=== PATIENT | male | born 1945 | race Caucasian/White ===

== ENCOUNTER → 2017-01-18 | Outpatient (CLI) | payer OTHER ==
[2017-01-18 13:35] LABS: ALBUMIN 3.7 GM/DL (3.2-5.2); ALBUMIN/GLOBULIN RATIO 1.32 (1.00-1.93); ALKALINE PHOSPHATASE 99 U/L (45-117); ALT/SGPT 22 U/L (12-78); ANION GAP 4 MEQ/L (8-16); AST/SGOT 23 U/L (15-37); BILIRUBIN,TOTAL 0.6 MG/DL (0.2-1.0); BLOOD UREA NITROGEN 13 MG/DL (7-18); CALCIUM LEVEL 8.8 MG/DL (8.8-10.2); CARBON DIOXIDE LEVEL 31 MEQ/L (21-32); CHLORIDE LEVEL 101 MEQ/L (98-107); CREATININE FOR GFR 0.86 MG/DL (0.70-1.30); GLOMERULAR FILTRATION RATE > 60.0 (>42); GLUCOSE, FASTING 91 MG/DL (83-110); POTASSIUM SERUM 4.2 MEQ/L (3.5-5.1); SODIUM LEVEL 136 MEQ/L (136-145); TOTAL PROTEIN 6.5 GM/DL (6.4-8.2)
== END ==
LOC: M LAB 12:02
PROVIDERS: ATTEND Physician Assistant
DX: E78.00 Pure hypercholesterolemia, unspecified (principal); I25.10 Atherosclerotic heart disease of native coronary artery without angina pectoris

== ENCOUNTER → 2017-03-19 | Outpatient (CLI) | payer OTHER ==
[2017-03-19 10:35] LABS: MEAN CORPUSCULAR HEMOGLOBIN 31.6 pg (27.0-33.0); MEAN CORPUSCULAR HGB CONC 34.4 g/dl (32.0-36.5); MEAN CORPUSCULAR VOLUME 91.8 fl (80.0-96.0); RED CELL DISTRIBUTION WIDTH 13.6 % (11.5-14.5); WHITE BLOOD COUNT 4.8 K/mm3 (4.0-10.0)
== END ==
LOC: M LAB 09:56
PROVIDERS: ATTEND Physician Assistant
DX: I25.10 Atherosclerotic heart disease of native coronary artery without angina pectoris (principal)

== ENCOUNTER 2017-06-10 11:09 | Emergency (ER) | payer OTHER ==
[~2017-06-10] VITALS: Ht 172.7 cm; Wt 67.3 kg
[2017-06-10] MEDS ORDERED: LISI-538 PO (11:20)
[2017-06-10] MEDS ORDERED: BAYE1TAB PO (11:20)
[2017-06-10] MEDS ORDERED: SIMV40TA2 PO (11:20)
[2017-06-10] MEDS ORDERED: NS 1,000 ML IV ONE (12:15)
[2017-06-10] MEDS ORDERED: ONDANSETRON 4MG/2ML VIAL (J2405) IV ONE (12:15)
[2017-06-10] MEDS ORDERED: GASTROGRAFIN SOLUTION 30ML (Q9963) As Ordered ONE (12:20)
[2017-06-10] MEDS ORDERED: GASTROGRAFIN SOLUTION 30ML PO ONE (12:30)
[2017-06-10 12:39] LABS: BASO % 0.1 % (0.0-1.0); IMMATURE GRANULOCYTE % 0.4 % (0-0); LYMPH # 0.3 10^3/uL (1.5-4.5); MEAN CORPUSCULAR HEMOGLOBIN 30.1 pg (27.0-33.0); MEAN CORPUSCULAR VOLUME 91.3 fl (80.0-96.0); MONO # 0.6 10^3/uL (0.0-0.8); MONO % 4.9 % (0.0-5.0); NEUTROPHILS % 92.3 % (36.0-66.0); PLATELET COUNT, AUTOMATED 146 10^3/uL (150-450); RED CELL DISTRIBUTION WIDTH 13.3 % (11.5-14.5)
[2017-06-10 12:58] LABS: ALBUMIN/GLOBULIN RATIO 1.48 (1.00-1.93); BILIRUBIN,TOTAL 0.6 MG/DL (0.2-1.0); CALCIUM LEVEL 8.5 MG/DL (8.8-10.2); CREATININE FOR GFR 1.28 MG/DL (0.70-1.30); GLOMERULAR FILTRATION RATE 58.8 (>42); POTASSIUM SERUM 4.4 MEQ/L (3.5-5.1); TOTAL PROTEIN 6.7 GM/DL (6.4-8.2)
[2017-06-10] MEDS ORDERED: GASTROGRAFIN SOLUTION 30ML (Q9963) PO ONE (13:00)
[2017-06-10 13:17] LABS: LYMPH % 2.3 % (24.0-44.0); POSITIVE DIFF POS FLAG
[2017-06-10 13:18] LABS: ADD MANUAL DIFFER NO; DIFF SLIDE NUMBER 217
[2017-06-10] MEDS ORDERED: DICYCLOMINE 10 MG CAP PO ONE (13:30)
[2017-06-10] MEDS ORDERED: ISOVUE-370 76% 100ML VIAL (Q9967) As Ordered ONE (13:44)
[2017-06-10] MEDS ORDERED: TAMSULOSIN 0.4 MG CAP PO ONE (15:15)
[2017-06-10] MEDS ORDERED: KETOROLAC 30 MG/ML VIAL (J1885) IV ONE (15:15)
[2017-06-10] MEDS ORDERED: FLOM5CAP PO (15:54)
[2017-06-10] MEDS ORDERED: PERC5TAB12 PO (15:54)
[2017-06-10] MEDS ORDERED: MACR100C43 PO (15:54)
--- NOTE | 2017-06-10 16:09 | REP ---
CT abdomen pelvis with IV but without oral contrast: History: Right lower quadrant pain. CT contrast dose: 100 ml of intravenous Isovue 370. Findings: Preliminary chief nursing executive view of the abdomen shows an unremarkable bowel gas pattern. The patient is status post aortic valve replacement. Axial CT images demonstrate that the lung bases are clear. The liver and the spleen are normal in size and homogeneous in texture. No adrenal lesion is seen. Pancreas and gallbladder are unremarkable. There is a cyst at the left mid kidney posteriorly measuring 3.7 cm in greatest diameter. On the right there is moderate hydronephrosis and hydroureter ureter. This is due to a 4 mm obstructing calculus just above the right ureter O vesicle junction in the distal ureter. This is associated with perinephric fluid or perinephric edema and some tom ureteral edema. There is an obstructive nephrogram on the right. No intrarenal calculus is observed. There is a cyst in the lower pole right kidney noted as well. This measures 1.5 cm in diameter. No bladder calculus is seen. Small and large intestinal bowel loops are remarkable for left colonic diverticulosis and a minimal ileus pattern. Normal caliber aorta with vascular calcification. No abdominal wall defect is seen. Bone window settings show no bony destructive lesion. There is evidence of a right L4-5 laminectomy defect. Impression: Obstructive 4 mm right distal ureteral calculus with moderate hydronephrosis and perinephric edema/fluid. Small bilateral renal cysts. Left colonic diverticulosis. Signed by Tan Michel MD 06/11/2017 08:14 A
[2017-06-10 16:14] VITALS: BP 112/69
== END 2017-06-10 16:18 | disposition home or self-care (01) ==
LOC: M ED 11:09
DX: N20.0 Calculus of kidney (principal); N28.1 Cyst of kidney, acquired; K57.90 Diverticulosis of intestine, part unspecified, without perforation or abscess without bleeding; I10 Essential (primary) hypertension; E78.5 Hyperlipidemia, unspecified; Z95.1 Presence of aortocoronary bypass graft; F17.200 Nicotine dependence, unspecified, uncomplicated; Z79.82 Long term (current) use of aspirin; Z79.899 Other long term (current) drug therapy
CPT/HCPCS: 36415; 74177; 80053; 83690; 85025; 96374; 96375; 99284; J1885; J2405; Q9963; Q9967

== ENCOUNTER 2017-06-13 16:20 | Emergency (ER) | payer OTHER ==
[~2017-06-13] VITALS: Ht 172.7 cm; Wt 67.3 kg
[~2017-06-13 16:20] MED LIST: BAYE1TAB PO; FLOM5CAP PO; LISI-538 PO; MACR100C43 PO; PERC5TAB12 PO; SIMV40TA2 PO
[2017-06-13] MEDS ORDERED: MORPHINE 2 MG/ML 1ML SYRINGE IV ONE (17:30)
[2017-06-13] MEDS ORDERED: NS 500 ML IV ONE (17:30)
[2017-06-13] MEDS ORDERED: ONDANSETRON 4MG/2ML VIAL (J2405) IV ONE (17:45)
[2017-06-13 18:24] LABS: BASO % 0.1 % (0.0-1.0); IMMATURE GRANULOCYTE % 0.2 % (0-0); LYMPH # 0.3 10^3/uL (1.5-4.5); LYMPH % 3.7 % (24.0-44.0); MEAN CORPUSCULAR HEMOGLOBIN 30.6 pg (27.0-33.0); MEAN CORPUSCULAR HGB CONC 33.5 g/dl (32.0-36.5); MEAN CORPUSCULAR VOLUME 91.3 fl (80.0-96.0); MONO # 0.7 10^3/uL (0.0-0.8); MONO % 7.7 % (0.0-5.0); NEUTROPHILS # 7.8 10^3/uL (1.8-7.7); NEUTROPHILS % 88.3 % (36.0-66.0); PLATELET COUNT, AUTOMATED 111 10^3/uL (150-450); RED CELL DISTRIBUTION WIDTH 13.3 % (11.5-14.5); WHITE BLOOD COUNT 8.9 10^3/uL (4.0-10.0)
[2017-06-13 18:45] LABS: CALCIUM LEVEL 8.3 MG/DL (8.8-10.2); CREATININE FOR GFR 1.34 MG/DL (0.70-1.30); GLOMERULAR FILTRATION RATE 55.8 (>42); POTASSIUM SERUM 4.7 MEQ/L (3.5-5.1)
--- NOTE | 2017-06-13 19:00 | REPUSA ---
CLINICAL HISTORY: Right renal stone. TECHNIQUE: Realtime sonographic images were obtained in multiple projections. COMMENTS: The right kidney measures 11.9 cm and the left kidney measures 10.6 cm. Both kidneys are free of hydronephrosis. There is no evidence of solid mass. There is right perinephric fluid. There is no roger al calculus. 2.6 cm left renal cyst is noted. IMPRESSION: . There is right perinephric fluid. There is no hydronephrosis or renal calculus. 2.6 cm left renal c yst is noted. Thank you for your kind referral of this patient.
[2017-06-13 20:47] LABS: MUCUS, URINE RFX SMALL (NEGATIVE); SPECIFIC GRAVITY UR AUTO RFX 1.013 (1.002-1.035); SQUAM EPITHELIAL CELL UR AURFX 0 /HPF (0-6)
[2017-06-13] MEDS ORDERED: NORCOTAB PO (21:22)
[2017-06-13] MEDS ORDERED: FLOM5CAP PO (21:22)
[2017-06-13 21:25] VITALS: BP 170/73
== END 2017-06-13 21:31 | disposition home or self-care (01) ==
LOC: M ED 16:20
DX: N23 Unspecified renal colic (principal); R10.9 Unspecified abdominal pain; N28.1 Cyst of kidney, acquired; I10 Essential (primary) hypertension; Z87.442 Personal history of urinary calculi; Z95.1 Presence of aortocoronary bypass graft; F17.200 Nicotine dependence, unspecified, uncomplicated; Z79.82 Long term (current) use of aspirin; Z79.899 Other long term (current) drug therapy
CPT/HCPCS: 76775; 80048; 81001; 85025; 86140; 96361; 96374; 96375; 99284; J2405

== ENCOUNTER → 2017-09-08 | Outpatient (REF) | payer OTHER ==
[2017-09-08 13:38] LABS: ALBUMIN 3.6 GM/DL (3.2-5.2); ANION GAP 4 MEQ/L (8-16); BLOOD UREA NITROGEN 15 MG/DL (7-18); CALCIUM LEVEL 8.4 MG/DL (8.8-10.2); CARBON DIOXIDE LEVEL 29 MEQ/L (21-32); CHLORIDE LEVEL 107 MEQ/L (98-107); CREATININE FOR GFR 0.77 MG/DL (0.70-1.30); GLOMERULAR FILTRATION RATE > 60.0 (>42); GLUCOSE, FASTING 91 MG/DL (70-100); PHOSPHORUS LEVEL 2.9 MG/DL (2.5-4.9); POTASSIUM SERUM 4.7 MEQ/L (3.5-5.1); SODIUM LEVEL 140 MEQ/L (136-145)
== END ==
LOC: M LABDRAW1 10:56
DX: I10 Essential (primary) hypertension (principal)
CPT/HCPCS: 80069

== ENCOUNTER → 2018-01-28 | Outpatient (REF) | payer OTHER ==
[2018-01-28 12:44] LABS: ALBUMIN 3.8 GM/DL (3.2-5.2); ALBUMIN/GLOBULIN RATIO 1.31 (1.00-1.93); ALKALINE PHOSPHATASE 83 U/L (45-117); ALT/SGPT 19 U/L (12-78); ANION GAP 5 MEQ/L (8-16); AST/SGOT 17 U/L (7-37); BILIRUBIN,TOTAL 0.4 MG/DL (0.2-1.0); BLOOD UREA NITROGEN 19 MG/DL (7-18); CALCIUM LEVEL 8.7 MG/DL (8.8-10.2); CARBON DIOXIDE LEVEL 33 MEQ/L (21-32); CHLORIDE LEVEL 105 MEQ/L (98-107); CHOLESTEROL LEVEL 132 MG/DL (<200); CHOLESTEROL RISK RATIO 2.095 (<5); CREATININE FOR GFR 0.82 MG/DL (0.70-1.30); GLOMERULAR FILTRATION RATE > 60.0 (>42); GLUCOSE, FASTING 83 MG/DL (70-100); HDL CHOLESTEROL 63 MG/DL (>40); LDL CHOLESTEROL 48.6 MG/DL (<100); NON-HDL-C 69 MG/DL; SODIUM LEVEL 143 MEQ/L (136-145); TOTAL PROTEIN 6.7 GM/DL (6.4-8.2); TRIGLYCERIDES LEVEL 102 MG/DL (<150)
[2018-01-28 12:52] LABS: POTASSIUM SERUM 5.2 MEQ/L (3.5-5.1)
== END ==
LOC: M LABDRAW1 12:04
DX: I25.10 Atherosclerotic heart disease of native coronary artery without angina pectoris (principal); E78.00 Pure hypercholesterolemia, unspecified; I10 Essential (primary) hypertension

== ENCOUNTER → 2018-08-02 | Outpatient (CLI) | payer OTHER ==
[~2018-08-02] MED LIST changes: +FLOM0.4C39 PO; -FLOM5CAP PO; +NORCOTAB PO
[2018-08-02 12:16] LABS: BLOOD UREA NITROGEN 16 MG/DL (7-18); CALCIUM LEVEL 8.4 MG/DL (8.8-10.2); CARBON DIOXIDE LEVEL 31 MEQ/L (21-32); CHLORIDE LEVEL 104 MEQ/L (98-107); CREATININE FOR GFR 0.91 MG/DL (0.70-1.30); GLOMERULAR FILTRATION RATE > 60.0 (>42); GLUCOSE, FASTING 88 MG/DL (70-100); POTASSIUM SERUM 4.7 MEQ/L (3.5-5.1); SODIUM LEVEL 140 MEQ/L (136-145)
== END ==
LOC: M LAB 10:48
PROVIDERS: ATTEND Physician Assistant
DX: I10 Essential (primary) hypertension (principal)

== ENCOUNTER → 2019-01-10 | Outpatient (CLI) | payer OTHER ==
[~2019-01-10] MED LIST changes: +HYDR-3715 PO; -NORCOTAB PO
[2019-01-10 12:59] LABS: BASO % 0.7 % (0.0-1.0); EOS # 0.1 10^3/uL (0.0-0.50); EOS % 3.4 % (0.0-3.0); HEMATOCRIT 46.5 % (42.0-52.0); HEMOGLOBIN 14.2 g/dl (13.5-17.5); LYMPH # 0.6 10^3/uL (1.5-4.5); LYMPH % 15.7 % (24.0-44.0); MEAN CORPUSCULAR HEMOGLOBIN 27.4 pg (27.0-33.0); MEAN CORPUSCULAR HGB CONC 30.5 g/dl (32.0-36.5); MEAN CORPUSCULAR VOLUME 89.8 fl (80.0-96.0); MONO # 0.5 10^3/uL (0.0-0.8); MONO % 11.3 % (0.0-5.0); NEUTROPHILS # 2.8 10^3/uL (1.8-7.7); NEUTROPHILS % 68.7 % (36.0-66.0); PLATELET COUNT, AUTOMATED 143 10^3/uL (150-450); RED BLOOD COUNT 5.18 10^6/uL (4.30-6.10); WHITE BLOOD COUNT 4.1 10^3/uL (4.0-10.0)
[2019-01-10 13:04] LABS: ALBUMIN 3.1 GM/DL (3.2-5.2); ALT/SGPT 19 U/L (12-78); BILIRUBIN,TOTAL 0.5 MG/DL (0.2-1.0); BLOOD UREA NITROGEN 19 MG/DL (7-18); CALCIUM LEVEL 8.6 MG/DL (8.8-10.2); CARBON DIOXIDE LEVEL 34 MEQ/L (21-32); CHLORIDE LEVEL 103 MEQ/L (98-107); CHOLESTEROL LEVEL 125 MG/DL (<200); CHOLESTEROL RISK RATIO 2.016 (<5); CREATININE FOR GFR 0.93 MG/DL (0.70-1.30); GLOMERULAR FILTRATION RATE > 60.0 (>42); GLUCOSE, FASTING 81 MG/DL (70-100); HDL CHOLESTEROL 62 MG/DL (>40); LDL CHOLESTEROL 51 MG/DL (<100); NON-HDL-C 63 MG/DL; SODIUM LEVEL 140 MEQ/L (136-145); TOTAL PROTEIN 6.4 GM/DL (6.4-8.2); TRIGLYCERIDES LEVEL 60 MG/DL (<150)
== END ==
LOC: M LRY 09:38
PROVIDERS: ATTEND Physician Assistant
DX: I10 Essential (primary) hypertension (principal); E78.2 Mixed hyperlipidemia; J44.9 Chronic obstructive pulmonary disease, unspecified

== ENCOUNTER → 2019-03-10 | Outpatient (CLI) | payer OTHER ==
[2019-03-10 21:04] LABS: HEMATOCRIT 45.5 % (42.0-52.0); HEMOGLOBIN 14.3 g/dl (13.5-17.5); MEAN CORPUSCULAR HEMOGLOBIN 27.8 pg (27.0-33.0); MEAN CORPUSCULAR HGB CONC 31.4 g/dl (32.0-36.5); MEAN CORPUSCULAR VOLUME 88.3 fl (80.0-96.0); PLATELET COUNT, AUTOMATED 129 10^3/uL (150-450); RED BLOOD COUNT 5.15 10^6/uL (4.30-6.10); WHITE BLOOD COUNT 5.1 10^3/uL (4.0-10.0)
[2019-03-10 21:13] LABS: ALBUMIN 3.5 GM/DL (3.2-5.2); ALT/SGPT 21 U/L (12-78); BILIRUBIN,TOTAL 0.4 MG/DL (0.2-1.0); BLOOD UREA NITROGEN 17 MG/DL (7-18); CALCIUM LEVEL 8.3 MG/DL (8.8-10.2); CARBON DIOXIDE LEVEL 31 MEQ/L (21-32); CHLORIDE LEVEL 105 MEQ/L (98-107); CHOLESTEROL LEVEL 138 MG/DL (<200); CHOLESTEROL RISK RATIO 2.156 (<5); CREATININE FOR GFR 0.89 MG/DL (0.70-1.30); GLOMERULAR FILTRATION RATE > 60.0 (>42); GLUCOSE, FASTING 90 MG/DL (70-100); HDL CHOLESTEROL 64 MG/DL (>40); LDL CHOLESTEROL 52 MG/DL (<100); NON-HDL-C 74 MG/DL; POTASSIUM SERUM 4.6 MEQ/L (3.5-5.1); SODIUM LEVEL 141 MEQ/L (136-145); TOTAL PROTEIN 6.1 GM/DL (6.4-8.2); TRIGLYCERIDES LEVEL 110 MG/DL (<150)
== END ==
LOC: M LRY 15:33
PROVIDERS: ATTEND Physician Assistant
DX: I25.10 Atherosclerotic heart disease of native coronary artery without angina pectoris (principal); E78.00 Pure hypercholesterolemia, unspecified; I10 Essential (primary) hypertension

== ENCOUNTER → 2019-03-20 | Outpatient (CLI) | payer OTHER ==
--- NOTE | 2019-03-21 04:18 | REP ---
Clinical: Cardiac surgery and high risk factors . Technique: Chapman scale and color Doppler evaluation using linear high frequency transducer Findings: Two-dimensional chapman scale and color images demonstrate moderate amount of atheromatous plaquing with laminar flow and no appreciable narrowing. Color Doppler interrogation demonstrates normal arterial wave patterns and velocities with no significant spectral broadening. Normal flow direction is appreciated in the bilateral vertebral arteries. RIGHT (cm/s) LEFT (cm/s) ICA peak systolic velocity 67.2 77.0 ICA diastolic velocity 25.7 32.4 ECA peak systolic velocity 73.8 73.7 CCA peak systolic velocity 79.5 96.4 ICA/CCA ratio 0.8 0.8 Impression: No hemodynamically significant areas of narrowing or stenosis appreciated. Based on set standards narrowing falls within the less than 50% range. Electronically Signed by Keyon Colon MD 03/21/2019 04:09 A
== END ==
LOC: M RAD 15:03
PROVIDERS: ATTEND Physician Assistant
DX: I65.23 Occlusion and stenosis of bilateral carotid arteries (principal)

== ENCOUNTER → 2019-10-02 | Outpatient (CLI) | payer OTHER ==
[~2019-10-02] MED LIST changes: -SIMV40TA2 PO; +SIMV40TA20 PO
[2019-10-02 12:17] LABS: BLOOD UREA NITROGEN 20 MG/DL (7-18); CALCIUM LEVEL 8.4 MG/DL (8.8-10.2); CARBON DIOXIDE LEVEL 34 MEQ/L (21-32); CHLORIDE LEVEL 102 MEQ/L (98-107); CREATININE FOR GFR 0.84 MG/DL (0.70-1.30); GLOMERULAR FILTRATION RATE > 60.0 (>42); GLUCOSE, FASTING 152 MG/DL (70-100); POTASSIUM SERUM 4.8 MEQ/L (3.5-5.1); SODIUM LEVEL 139 MEQ/L (136-145)
== END ==
LOC: M LRY 09:39
PROVIDERS: ATTEND Physician Assistant
DX: I10 Essential (primary) hypertension (principal)

== ENCOUNTER → 2020-04-10 | Outpatient (CLI) | payer OTHER ==
[2020-04-10 13:15] LABS: HEMATOCRIT 47.9 % (42.0-52.0); HEMOGLOBIN 14.9 g/dl (13.5-17.5); MEAN CORPUSCULAR HEMOGLOBIN 27.6 pg (27.0-33.0); MEAN CORPUSCULAR HGB CONC 31.1 g/dl (32.0-36.5); MEAN CORPUSCULAR VOLUME 88.9 fl (80.0-96.0); PLATELET COUNT, AUTOMATED 126 10^3/uL (150-450); RED BLOOD COUNT 5.39 10^6/uL (4.30-6.10); WHITE BLOOD COUNT 5.1 10^3/uL (4.0-10.0)
[2020-04-10 13:35] LABS: ALBUMIN 3.6 GM/DL (3.2-5.2); ALT/SGPT 18 U/L (12-78); BILIRUBIN,TOTAL 0.5 MG/DL (0.2-1.0); BLOOD UREA NITROGEN 17 MG/DL (7-18); CALCIUM LEVEL 8.6 MG/DL (8.8-10.2); CARBON DIOXIDE LEVEL 33 MEQ/L (21-32); CHLORIDE LEVEL 105 MEQ/L (98-107); CHOLESTEROL LEVEL 127 MG/DL (<200); CHOLESTEROL RISK RATIO 2.048 (<5); CREATININE FOR GFR 0.95 MG/DL (0.70-1.30); GLOMERULAR FILTRATION RATE > 60.0 (>42); GLUCOSE, FASTING 87 MG/DL (70-100); HDL CHOLESTEROL 62 MG/DL (>40); LDL CHOLESTEROL 51 MG/DL (<100); NON-HDL-C 65 MG/DL; POTASSIUM SERUM 4.6 MEQ/L (3.5-5.1); SODIUM LEVEL 139 MEQ/L (136-145); TOTAL PROTEIN 6.5 GM/DL (6.4-8.2); TRIGLYCERIDES LEVEL 72 MG/DL (<150)
== END ==
LOC: M WUC 10:16
PROVIDERS: ATTEND Physician Assistant
DX: I25.10 Atherosclerotic heart disease of native coronary artery without angina pectoris (principal); E78.00 Pure hypercholesterolemia, unspecified; I10 Essential (primary) hypertension

== ENCOUNTER → 2020-10-02 | Outpatient (REF) | payer OTHER ==
[~2020-10-02] MED LIST changes: -LISI-538 PO; +LISI20TA33 PO
[2020-10-02 15:48] LABS: BLOOD UREA NITROGEN 14 MG/DL (7-18); CALCIUM LEVEL 9.1 MG/DL (8.8-10.2); CARBON DIOXIDE LEVEL 32 MEQ/L (21-32); CHLORIDE LEVEL 102 MEQ/L (98-107); CREATININE FOR GFR 0.89 MG/DL (0.70-1.30); GLOMERULAR FILTRATION RATE > 60.0 (>42); GLUCOSE, FASTING 89 MG/DL (70-100); POTASSIUM SERUM 4.1 MEQ/L (3.5-5.1); SODIUM LEVEL 138 MEQ/L (136-145)
== END ==
LOC: M LABWUC 14:33
PROVIDERS: ATTEND Physician Assistant
DX: I10 Essential (primary) hypertension (principal)

== ENCOUNTER → 2020-12-24 | Outpatient (REF) | payer OTHER | LOC: M SFHCLERA 18:49 | PROVIDERS: ATTEND Nurse Practitioner Family | DX: B07.9 Viral wart, unspecified (principal) | CPT/HCPCS: 11301; 88305; G0463 ==

== ENCOUNTER 2021-03-06 09:33 | Emergency (ER) | payer OTHER ==
[~2021-03-06] VITALS: Ht 170.2 cm; Wt 66.9 kg
[2021-03-06 09:35] VITALS: BP 133/67
[2021-03-06] MEDS ORDERED: OMEP-221 (09:44)
[2021-03-06] MEDS ORDERED: PROAAER10 (09:44)
== END 2021-03-06 12:59 | disposition left against medical advice (07) ==
LOC: M ED 09:33
DX: Z53.21 Procedure and treatment not carried out due to patient leaving prior to being seen by health care provider (principal)

== ENCOUNTER 2021-03-24 03:15 | Inpatient (IN) | payer OTHER ==
[~2021-03-24] VITALS: Ht 172.7 cm; Wt 64.3 kg
[~2021-03-24 03:15] MED LIST changes: +OMEP-221 PO; +PROAAER10 INH
[2021-03-24] MEDS ORDERED: ADV250INH INH (03:44)
[2021-03-24] MEDS ORDERED: ATOR80TA59 PO (03:44)
[2021-03-24 04:22] LABS: BASO % 0.2 % (0.0-1.0); EOS % 0.3 % (0.0-3.0); HEMATOCRIT 37.2 % (42.0-52.0); HEMOGLOBIN 11.9 g/dl (13.5-17.5); LYMPH # 0.5 10^3/uL (1.5-5.0); LYMPH % 4.6 % (24.0-44.0); MEAN CORPUSCULAR HEMOGLOBIN 26.2 pg (27.0-33.0); MEAN CORPUSCULAR VOLUME 81.8 fl (80.0-96.0); MONO # 0.8 10^3/uL (0.0-0.8); MONO % 6.8 % (2.0-8.0); NEUTROPHILS # 9.8 10^3/uL (1.5-8.5); NEUTROPHILS % 87.6 % (36.0-66.0); PLATELET COUNT, AUTOMATED 198 10^3/uL (150-450); RED BLOOD COUNT 4.55 10^6/uL (4.30-6.10); WHITE BLOOD COUNT 11.2 10^3/uL (4.0-10.0)
--- NOTE | 2021-03-24 04:28 | REPVR ---
PROCEDURE INFORMATION: Exam: XR Chest Exam date and time: 03/24/2021 3:35 AM Age: 76 years old Clinical indication: Angina pectoris; Additional info: Chest pain TECHNIQUE: Imaging protocol: XR of the chest. Views: 1 view. COMPARISON: CT ABD/PEL W/IV ORAL CONTRAS 06/10/2017 1:49 PM FINDINGS: Lungs: There is extensive consolidation in the right lung base and interstitial opacities in the left lung base. Pleural spaces: No pleural effusion or pneumothorax is identified. Heart/Mediastinum: Postoperative changes are noted from a CABG and aortic valve replacement. Mediastinal clips are in place. No cardiomegaly or mediastinal widening is noted. Bones/joints: Intact median sternotomy suture wires are in place. 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 There are endplate spurs in the thoracic spine. IMPRESSION: Extensive consolidation in the right lung base and interstitial opacities in the left lung base, which may represent pneumonia. Follow-up chest radiographs are suggested in 6 to 8 weeks after treatment or as clinically indicated to ensure resolution and to exclude an underlying mass in the right lung base. Electronically signed by: Francisco Noel On 03/24/2021 04:28:29 AM
[2021-03-24 04:46] LABS: BLOOD UREA NITROGEN 14 MG/DL (7-18); CALCIUM LEVEL 7.6 MG/DL (8.8-10.2); CARBON DIOXIDE LEVEL 31 MEQ/L (21-32); CHLORIDE LEVEL 100 MEQ/L (98-107); CK-MB VALUE MASS 2.4 NG/ML (<3.6); CPK CREATINE PHOSPHOKINASE 45 U/L (39-308); CREATININE FOR GFR 0.75 MG/DL (0.70-1.30); GLOMERULAR FILTRATION RATE > 60.0 (>42); GLUCOSE, FASTING 117 MG/DL (70-100); MB/CK RELATIVE INDEX 5.33 (< OR =4); POTASSIUM SERUM 3.7 MEQ/L (3.5-5.1); SODIUM LEVEL 136 MEQ/L (136-145); TROPONIN I 0.33 NG/ML (< 0.10)
--- NOTE | 2021-03-24 06:02 | ECGEPIP ---
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
[2021-03-24] MEDS ORDERED: dexameTHASONE 20MG/5ML VIAL (J1100 PER 1MG) IV ONE (06:30)
[2021-03-24] MEDS: COMBIVENT RESPIMAT 100-20MCG INHALER 4GM INH SCH ×3 (06:36→06:48)
[2021-03-24 07:22] LABS: CK-MB VALUE MASS 1.6 NG/ML (<3.6); MB/CK RELATIVE INDEX 2.96 (< OR =4); TROPONIN I 0.28 NG/ML (< 0.10)
[2021-03-24] MEDS ORDERED: ASPI32ECTA PO (07:38)
[2021-03-24] MEDS ORDERED: HOME MED LIST COMPLETE! XX SCH (07:40)
[2021-03-24] MEDS: ADVAIR HFA 115/21MCG INHALER INH SCH ×2 (08:00→20:00)
[2021-03-24] MEDS ORDERED: ALBUTEROL 90 MCG/ACT 8GM HFA INHALER INH PRN (08:05)
[2021-03-24] MEDS ORDERED: AZITHROMYCIN INJ 500 MG, VIAL MATE ADAPTER 1 EACH in NS 250 ML IV SCH (08:05)
--- NOTE | 2021-03-24 08:36 | ECGEPIP ---
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
[2021-03-24] MEDS ORDERED: ENOXAPARIN 40MG/0.4ML SYRINGE (J1650 PER 10MG) SC SCH (09:00)
[2021-03-24] MEDS ORDERED: ASPIRIN 81MG ENTERIC TABLET PO SCH (09:00)
[2021-03-24] MEDS ORDERED: ATORVASTATIN 20 MG TAB PO SCH (09:00)
[2021-03-24] MEDS ORDERED: dexameTHASONE 4 MG/ML 1ML VIAL (J1100 PER 1MG) IV SCH (09:00)
[2021-03-24] MEDS ORDERED: ASPIRIN ENTERIC 325 MG TAB PO SCH (09:00)
[2021-03-24] MEDS ORDERED: PANTOPRAZOLE 40MG TAB (PROTONIX) PO SCH (09:00)
[2021-03-24] MEDS: DOXYCYCLINE HYCLATE 100 MG in D5W MINI-BAG PLUS 100 ML IV SCH ×2 (09:09→22:00)
--- NOTE | 2021-03-24 09:55 | HPEPDOC ---
General Date of Admission Mar 24, 2021 at 07:55 Date of Service: Mar 24, 2021 Chief Complaint The patient is a 76-year-old male admitted with a reason for visit of Covid- 19,Hypoxia. History of Present Illness Mr. Allison is a 76-year-old male with COPD and bovine aortic valve who is here for 2 weeks of malaise, dyspnea, and chest pain and found to be Covid positive. He tells me that he did receive 2 Covid vaccines but does not know which vaccine he received. Denies any recent travel, sick contacts, or recent hospitalizations. About 2 weeks ago, he started to feel short of breath with associated chest pain. He tried to go to the ER last week but left as he waited for 6 hours. He tried to go to another ER but left after 3 hours. This morning, his symptoms were improving and decided to call an ambulance to come to the ED. While here he was hypoxic at room air and required 3 to 4 L of oxygen. With oxygen supplementation, his chest pain resolved. Patient tested positive for Covid. Chest x-ray demonstrates extensive consolidation in the right lung base and some opacities in the left lung base. Patient be admitted for Covid pneumonia with hypoxia Home Medications Scheduled Aspirin (Aspirin EC) 325 Mg Tablet.dr, 325 MG PO DAILY, (Reported) Atorvastatin Calcium (Atorvastatin Calcium) 80 Mg Tablet, 80 MG PO DAILY, (Reported) Lisinopril (Lisinopril) 20 Mg Tab, 20 MG PO DAILY, (Reported) Omeprazole (Omeprazole) 40 Mg Capsule.dr, 40 MG PO DAILY, (Reported) Salmeterol/Fluticasone (Advair 250-50 Diskus) 1 Each Blst.w.dev, 1 PUFF INH BID, (Reported) Scheduled PRN Albuterol Sulfate (Proair Hfa) 8.5 Gm Hfa.aer.ad, 2 PUFFS INH QID PRN for SOB/WHEEZING, (Reported) Allergies Coded Allergies: No Known Allergies (Unverified , 06/10/17) Past Medical History Medical History 1. Hypertension 2. Hyperlipidemia 3. COPD 4. Bovine aortic valve Surgical History 1. Heart bypass with bovine aortic valve replacement in 2008 2. Appendectomy 3. Back bone spurs Family History Denies any known past medical history in parents Social History * Smoker: former Smoker Alcohol: occationally Drugs: denies A-FIB/CHADSVASC A-FIB History Current/History of A-Fib/PAF?: No Review of Systems Constitutional: Reports: Fever, Malaise; Denies: Chills Eyes: Denies: Vision change ENT: Denies: Sore Throat Skin: Denies: Rash Pulmonary: Reports: Dyspnea, Cough Cardiovascular: Reports: Chest Pain Gastrointestinal: Denies: Nausea, Abdominal Pain, Diarrhea Genitourinary: Denies: Dysuria Hematologic: Denies: Bruising Neurological: Denies: Numbness Psych: Denies: Anxiety, Depression Physical Examination General Exam: Positive: Alert, Cooperative Eye Exam: Positive: EOMI; Negative: Sclera icteric ENT Exam: Positive: Atraumatic Neck Exam: Positive: Supple Chest Exam: Positive: Diminished Heart Exam: Positive: Rate Normal, Regular Rhythm Abdomen Exam: Positive: Normal bowel sounds, Soft; Negative: Tenderness Extremity Exam: Negative: Edema Neuro Exam: Positive: Normal Speech Psych Exam: Positive: Mental status NL, Mood NL Vital Signs Vital Signs Date Time Temp Pulse Resp B/P (MAP) Pulse Ox O2 Delivery O2 Flow Rate FiO2 03/24/21 06:32 97 177/86 (116) 03/24/21 06:15 18 96 Nasal Cannula 03/24/21 05:15 3.0 03/24/21 03:30 98.3 Laboratory Data Labs 24H Laboratory Tests 2 03/24/21 03:26: Immature Granulocyte % (Auto) 0.5, Neutrophils (%) (Auto) 87.6H, Lymphocytes (%) (Auto) 4.6L, Monocytes (%) (Auto) 6.8, Eosinophils (%) (Auto) 0.3, Basophils (%) (Auto) 0.2, Neutrophils # (Auto) 9.8H, Lymphocytes # (Auto) 0.5L, Monocytes # (Auto) 0.8, Eosinophils # (Auto) 0.0, Basophils # (Auto) 0.0, Nucleated Red Blood Cells % (auto) 0.0, Anion Gap 5L, Glomerular Filtration Rate > 60.0, Calcium Level 7.6L, Total Creatine Kinase 45, Creatine Kinase MB 2.4, Creatine Kinase MB Relative Index 5.33H, Troponin I 0.33H 03/24/21 04:02: POC pH (Misc Panel) 7.470H, POC Base Excess (Misc Panel) 6.0H, POC Saturated Percent O2 (Misc) 95, POC pO2 (Misc Panel) 72.0L, POC pCO2 (Misc Panel) 40.1, POC HCO3 (Misc Panel) 29.2H, POC Total CO2 (Misc Panel) 30.0H 03/24/21 06:14: Total Creatine Kinase 54, Creatine Kinase MB 1.6, Creatine Kinase MB Relative Index 2.96, Troponin I 0.28H CBC/BMP Laboratory Tests 03/24/21 03:26 Microbiology Microbiology 03/24/21 Respiratory Virus Panel (PCR) ([facility]) - Final, Complete SARS-CoV-2 (COVID 19) Assessment/Plan Mr. Allison is a 76-year-old male with COPD and bovine aortic valve who is here for 2 weeks of malaise, dyspnea, and chest pain and found to be Covid positive. Patient had breakthrough Covid infection despite Covid vaccine. He had 2 shots but does not know which vaccine he received. Imaging is suggestive of pneumonia. We will obtain the rest of the Covid work-up. If liver enzymes are not elevated, will start remdesivir. Patient will be on ceftriaxone and doxycycline for pneumonia. Doxycycline was chosen for atypicals as patient had mild QTC prolongation at 471 Plan / VTE VTE Prophylaxis Ordered?: Yes Plan Plan 1. Covid pneumonia with hypoxia Patient had 2 shots of the Covid vaccine. Does not know which vaccine he received Start patient on dexamethasone, antibiotics, and breathing treatments If liver enzymes are not elevated, start remdesivir Supportive oxygen as needed. Patient is not on oxygen at baseline 2. Suspected pneumonia Chest x-ray suggests pneumonia We will obtain a procalcitonin. If procalcitonin is negative, can de-escalate antibiotics 3. COPD Stable not in exacerbation Continue Advair Breathing treatments as needed 4. Demand ischemia (NSTEMI) Secondary to hypoxia Symptoms improved with oxygen supplementation Troponins downtrending 5. Dyslipidemia Continue atorvastatin 6. Hypertension Continue lisinopril 7. GERD Substitute omeprazole for pantoprazole 8. Bovine aortic valve Patient reports that he has a bovine valve replacement Continue aspirin 9. DVT prophylaxis Aspirin and Lovenox Disposition: Pending clinical improvement SHAAN MCKEON DO Mar 24, 2021 09:55
[2021-03-24 10:46] LABS: FIBRINOGEN 627 MG/DL (268-480); INR 1.14; PROTHROMBIN TIME 15.1 SECONDS (12.7-14.5)
[2021-03-24 10:47] LABS: PARTIAL THROMBOPLASTIN TIME 42.9 SECONDS (25.9-37.0)
[2021-03-24] MEDS: cefTRIAXone SOD 1 GM in D5W MINI-BAG PLUS 50 ML IV SCH (10:55)
[2021-03-24 11:20] LABS: ALBUMIN 2.2 GM/DL (3.2-5.2); BILIRUBIN,DIRECT 0.6 MG/DL (0.0-0.2); BILIRUBIN,TOTAL 1.2 MG/DL (0.2-1.0); D-DIMER QUANT > 4000 ng/ml (<500); MAGNESIUM LEVEL 2.1 MG/DL (1.8-2.4); TOTAL PROTEIN 6.5 GM/DL (6.4-8.2)
[2021-03-24 11:30] VITALS: BP 133/74
[2021-03-24 14:07] VITALS: O2SAT 93
[2021-03-24 18:52] VITALS: O2SAT 93
[2021-03-24] MEDS ORDERED: REMDESIVIR 200 MG in NS 250 ML IV ONE (20:00)
[2021-03-24] MEDS ORDERED: SODIUM CHLORIDE 0.9% INJ 10 ML SYR IV ONE (20:00)
[2021-03-24] MEDS: ENOXAPARIN 100MG/1ML SYRINGE (J1650 PER 10MG) SC SCH (21:07)
[2021-03-24 22:00] VITALS: BP 139/67
[2021-03-24 23:00] VITALS: O2SAT 95
[2021-03-25 04:00] VITALS: O2SAT 94
[2021-03-25] MEDS: dexameTHASONE 4 MG/ML 1ML VIAL (J1100 PER 1MG) IV SCH ×2 (06:49→08:34)
[2021-03-25 06:50] VITALS: BP 171/93
[2021-03-25 07:00] VITALS: O2SAT 93
[2021-03-25 07:03] LABS: BASO % 0.3 % (0.0-1.0); EOS # 0.1 10^3/uL (0.0-0.5); EOS % 0.9 % (0.0-3.0); HEMATOCRIT 37.4 % (42.0-52.0); HEMOGLOBIN 11.5 g/dl (13.5-17.5); LYMPH # 0.8 10^3/uL (1.5-5.0); LYMPH % 10.2 % (24.0-44.0); MEAN CORPUSCULAR HEMOGLOBIN 25.5 pg (27.0-33.0); MEAN CORPUSCULAR HGB CONC 30.7 g/dl (32.0-36.5); MEAN CORPUSCULAR VOLUME 82.9 fl (80.0-96.0); MONO # 0.8 10^3/uL (0.0-0.8); MONO % 9.5 % (2.0-8.0); NEUTROPHILS # 6.2 10^3/uL (1.5-8.5); NEUTROPHILS % 78.5 % (36.0-66.0); PLATELET COUNT, AUTOMATED 187 10^3/uL (150-450); RED BLOOD COUNT 4.51 10^6/uL (4.30-6.10); WHITE BLOOD COUNT 7.9 10^3/uL (4.0-10.0)
[2021-03-25 07:22] LABS: BLOOD UREA NITROGEN 15 MG/DL (7-18); CALCIUM LEVEL 8.1 MG/DL (8.8-10.2); CARBON DIOXIDE LEVEL 31 MEQ/L (21-32); CHLORIDE LEVEL 103 MEQ/L (98-107); GLOMERULAR FILTRATION RATE > 60.0 (>42); GLUCOSE, FASTING 96 MG/DL (70-100); POTASSIUM SERUM 3.5 MEQ/L (3.5-5.1); SODIUM LEVEL 138 MEQ/L (136-145)
[2021-03-25] MEDS: ADVAIR HFA 115/21MCG INHALER INH SCH ×2 (08:00→19:28)
[2021-03-25] MEDS: ATORVASTATIN 20 MG TAB PO SCH (08:32)
[2021-03-25] MEDS: PANTOPRAZOLE 40MG TAB (PROTONIX) PO SCH (08:32)
[2021-03-25] MEDS: ENOXAPARIN 100MG/1ML SYRINGE (J1650 PER 10MG) SC SCH ×2 (08:33→21:40)
[2021-03-25] MEDS: ASPIRIN ENTERIC 325 MG TAB PO SCH (08:33)
[2021-03-25] MEDS: DOXYCYCLINE HYCLATE 100 MG in D5W MINI-BAG PLUS 100 ML IV SCH ×2 (10:00→22:41)
[2021-03-25] MEDS: cefTRIAXone SOD 1 GM in D5W MINI-BAG PLUS 50 ML IV SCH (12:38)
--- NOTE | 2021-03-25 13:05 | IPN ---
PROGRESS NOTE DATE: 03/25/2021 SUBJECTIVE: Patient still complains of some generalized weakness, cough productive of white sputum without fever, chills, nausea or vomiting. He denies any anosmia or dysgeusia. OBJECTIVE: VITAL SIGNS: Temperature is 98.3, pulse is 84, respiratory rate 20, blood pressure is 171/93 and 165/94, 93% on five liters nasal cannula. GENERAL: Awake, alert and oriented to person, place and time, no respiratory distress or use of respiratory accessory muscles, cyanosis or JVD. LUNGS: Diminished. No wheezing or rales. HEART: S1 and S2 sinus rhythm. ABDOMEN: Soft, nontender and nondistended. Positive bowel sounds. EXTREMITIES: No cyanosis, clubbing or pitting edema. LABORATORY DATA/IMAGING STUDIES/MICROBIOLOGY: Reviewed. ASSESSMENT AND PLAN: This is a 76-year-old male with a history of bovine aortic valve replacement, COPD, who presented with a two week history of malaise, dyspnea and chest pain, was found to be Coronavirus positive. IMPRESSION: 1. COVID pneumonia with hypoxia, currently on supplemental oxygen, Remdesivir, Dexamethasone and supplemental oxygen to keep saturations above 88%. 2. Pneumonia with elevated procalcitonin level, currently on antibiotics day #2. 3. COPD, not in exacerbation, on Advair and bronchodilators as needed. 4. Demand mediated ischemia secondary to hypoxia on oxygen and treatment for Coronavirus pneumonia. 5. Hypertension. Continue on Lisinopril. 6. Dyslipidemia, on atorvastatin. 7. GERD, on Prilosec. 8. Bovine aortic valve on aspirin, DVT prophylaxis and aspirin and Lovenox. MTDD
[2021-03-25 14:49] VITALS: BP 103/61
[2021-03-25 15:21] LABS: APPEARANCE, URINE CLEAR (CLEAR); BACTERIA, URINE AUTO NEGATIVE (NEGATIVE); BILIRUBIN, URINE AUTO NEGATIVE (NEGATIVE); BLOOD, URINE BLOOD 1+ (NEGATIVE); COLOR, URINE YELLOW (YELLOW); GLUCOSE, URINE (UA) AUTO NEGATIVE (NEGATIVE); KETONE, URINE AUTO NEGATIVE (NEGATIVE); LEUKOCYTE ESTERASE, URINE AUTO NEGATIVE (NEGATIVE); MUCUS, URINE SMALL (NEGATIVE); NITRITE, URINE AUTO NEGATIVE (NEGATIVE); PROTEIN, URINE AUTO NEGATIVE (NEGATIVE); RBC, URINE AUTO 6 /HPF (0-3); SPECIFIC GRAVITY URINE AUTO 1.011 (1.002-1.035); SQUAMOUS EPITHELIAL CELL UR AU 0 /HPF (0-6); WBC, URINE AUTO 1 /HPF (0-3)
[2021-03-25 17:08] LABS: MYCOPLASMA PNEUMONIAE IgG <100 U/mL (0-99); MYCOPLASMA PNEUMONIAE IgM <770 U/mL (0-769)
[2021-03-25] MEDS: REMDESIVIR 100 MG in NS 250 ML IV SCH (19:40)
[2021-03-25] MEDS: SODIUM CHLORIDE 0.9% INJ 10 ML SYR IV SCH (21:35)
[2021-03-25 21:42] VITALS: O2SAT 96
[2021-03-25 22:00] VITALS: BP 146/70
[2021-03-26 06:25] VITALS: BP 167/88
[2021-03-26 06:36] LABS: BASO % 0.2 % (0.0-1.0); EOS # 0.1 10^3/uL (0.0-0.5); EOS % 1.1 % (0.0-3.0); HEMATOCRIT 33.1 % (42.0-52.0); HEMOGLOBIN 10.2 g/dl (13.5-17.5); LYMPH # 0.8 10^3/uL (1.5-5.0); LYMPH % 12.8 % (24.0-44.0); MEAN CORPUSCULAR HGB CONC 30.8 g/dl (32.0-36.5); MEAN CORPUSCULAR VOLUME 84.2 fl (80.0-96.0); MONO # 0.8 10^3/uL (0.0-0.8); MONO % 12.3 % (2.0-8.0); NEUTROPHILS # 4.5 10^3/uL (1.5-8.5); NEUTROPHILS % 72.8 % (36.0-66.0); PLATELET COUNT, AUTOMATED 177 10^3/uL (150-450); RED BLOOD COUNT 3.93 10^6/uL (4.30-6.10); WHITE BLOOD COUNT 6.2 10^3/uL (4.0-10.0)
[2021-03-26 06:54] LABS: ALBUMIN 1.6 GM/DL (3.2-5.2); ALT/SGPT 13 U/L (12-78); BILIRUBIN,DIRECT 0.1 MG/DL (0.0-0.2); BILIRUBIN,TOTAL 0.3 MG/DL (0.2-1.0); BLOOD UREA NITROGEN 16 MG/DL (7-18); CARBON DIOXIDE LEVEL 31 MEQ/L (21-32); CHLORIDE LEVEL 105 MEQ/L (98-107); CPK CREATINE PHOSPHOKINASE 24 U/L (39-308); CREATININE FOR GFR 0.55 MG/DL (0.70-1.30); FERRITIN 263 NG/ML (26-388); GLOMERULAR FILTRATION RATE > 60.0 (>42); GLUCOSE, FASTING 81 MG/DL (70-100); LDH LACTATE DEHYDROGENASE 197 U/L (87-241); MAGNESIUM LEVEL 1.8 MG/DL (1.8-2.4); NT-PRO BNP 1684 PG/ML (<450); POTASSIUM SERUM 4.1 MEQ/L (3.5-5.1); SODIUM LEVEL 141 MEQ/L (136-145); TOTAL PROTEIN 5.3 GM/DL (6.4-8.2); TROPONIN I 0.12 NG/ML (< 0.10)
[2021-03-26 07:03] LABS: INR 1.17; PROTHROMBIN TIME 15.4 SECONDS (12.7-14.5)
[2021-03-26 07:05] LABS: PARTIAL THROMBOPLASTIN TIME 41.1 SECONDS (25.9-37.0)
[2021-03-26] MEDS: ADVAIR HFA 115/21MCG INHALER INH SCH ×2 (07:38→19:49)
[2021-03-26 08:00] VITALS: O2SAT 92
[2021-03-26] MEDS: ASPIRIN ENTERIC 325 MG TAB PO SCH (09:04)
[2021-03-26] MEDS: ENOXAPARIN 100MG/1ML SYRINGE (J1650 PER 10MG) SC SCH ×2 (09:04→20:04)
[2021-03-26] MEDS: ATORVASTATIN 20 MG TAB PO SCH (09:05)
[2021-03-26] MEDS: PANTOPRAZOLE 40MG TAB (PROTONIX) PO SCH (09:07)
[2021-03-26] MEDS: dexameTHASONE 4 MG/ML 1ML VIAL (J1100 PER 1MG) IV SCH (09:07)
[2021-03-26] MEDS: DOXYCYCLINE HYCLATE 100 MG in D5W MINI-BAG PLUS 100 ML IV SCH ×2 (09:16→21:26)
--- NOTE | 2021-03-26 10:13 | IPNPDOC ---
Date Seen The patient was seen on 03/26/21. Progress Note SUBJECTIVE: Patient says he feels better still with a dry cough without fever chills. no dyspnea on exertion. Denies dysgeusia anosmia. Good appetite without nausea vomiting abdominal pain or diarrhea OBJECTIVE: VITAL SIGNS:see below GENERAL: Sitting on a chair at the bedside No conversational dyspnea able to complete his sentences No pallor awake, alert and oriented to person, place and time, no respiratory distress or use of respiratory accessory muscles, cyanosis or JVD. LUNGS: Diminished. No wheezing or rales. no stridor HEART: S1 and S2 sinus rhythm. ABDOMEN: Soft, nontender and nondistended. Positive bowel sounds. EXTREMITIES: No cyanosis, clubbing or pitting edema. LABORATORY DATA/IMAGING STUDIES/MICROBIOLOGY: Reviewed. ASSESSMENT AND PLAN: This is a 76-year-old male with a history of bovine aortic valve replacement, COPD, who presented with a two week history of malaise, dyspnea and chest pain, was found to be Coronavirus positive. IMPRESSION: COVID pneumonia with hypoxia, currently on supplemental oxygen, Remdesivir, Dexamethasone and supplemental oxygen to keep saturations above 90%. Suspected secondary bacterial pneumonia with elevated procalcitonin level, currently on Day #3 of IV ceftriaxone and IV doxycycline. Acute hypoxic respiratory failure -requiring supplemental oxygen - secondary to coronavirus and suspected bacterial pneumonia -Supportive care with IV remdesivir for coronavirus , and ceftriaxone and doxycycline day #3 for bacterial pneumonia -supplemental oxygen to keep saturations above 90%. COPD, not in exacerbation, on Advair and bronchodilators as needed. Demand mediated ischemia secondary to hypoxia on oxygen and treatment for Coronavirus pneumonia. Hypertension. Continue on Lisinopril. Dyslipidemia, on atorvastatin. GERD, on Prilosec. bovine aortic valve on aspirin, DVT prophylaxis and aspirin and Lovenox. Disposition: 1 to 2 days pending clinical improvement VS, I&O, 24H, Miguel Abone Vital Signs/I&O Vital Signs Date Time Temp Pulse Resp B/P (MAP) Pulse Ox O2 Delivery O2 Flow Rate FiO2 03/26/21 09:07 145/72 03/26/21 06:25 97.4 72 18 92 High Flow Cannula 4.0 I&O- Last 24 Hours up to 6 AM 03/26/21 06:00 Intake Total 1200 ml Output Total 450 ml Balance 750 ml Laboratory Data 24H LABS Laboratory Tests 2 03/25/21 14:53: Urine Color YELLOW, Urine Appearance CLEAR, Urine pH 6.0, Urine Specific [place] 1.011, Urine Protein NEGATIVE, Urine Glucose (Auto)(UA) NEGATIVE, Urine Ketones (Auto) NEGATIVE, Urine Blood 1+H, Urine Nitrite NEGATIVE, Urine Bilirubin NEGATIVE, Urine Urobilinogen 2.0H, Urine Leukocyte Esterase (Auto) NEGATIVE, Urine WBC (Auto) 1, Urine RBC (Auto) 6H, Urine Hyaline Casts (Auto) 0, Urine Lexx teria (Auto) NEGATIVE, Urine Squamous Epithelial Cells 0, Urine Mucus (Auto) SMALL, Urine Sperm (Auto) 03/26/21 05:55: Immature Granulocyte % (Auto) 0.8, Neutrophils (%) (Auto) 72.8H, Lymphocytes (%) (Auto) 12.8L, Monocytes (%) (Auto) 12.3H, Eosinophils (%) (Auto) 1.1, Basophils (%) (Auto) 0.2, Neutrophils # (Auto) 4.5, Lymphocytes # (Auto) 0.8L, Monocytes # (Auto) 0.8, Eosinophils # (Auto) 0.1, Basophils # (Auto) 0.0, Nucleated Red Blood Cells % (auto) 0.0, Prothrombin Time 15.4H, Prothromb Time International Ratio 1.17, Activated Partial Thromboplast Time 41.1H, Fibrinogen 437, Anion Gap 5L, Glomerular Filtration Rate > 60.0, Calcium Level 8.0L, Magnesium Level 1.8, Ferritin 263, Total Bilirubin 0.3#, Direct Bilirubin 0.1, Aspartate Amino Transf (AST/SGOT) 17, Alanine Aminotransferase (ALT/SGPT) 13, Alkaline Phosphatase 79, Lactate Dehydrogenase 197, Total Creatine Kinase 24L, Troponin I 0.12#H, PP-Lyp-I-Type Natriuretic Peptide 1684H, Total Protein 5.3L, Albumin 1.6#L, Albumin/Globulin Ratio 0.4 CBC/BMP Laboratory Tests 03/26/21 05:55 Microbiology Microbiology 03/24/21 Blood Culture - Preliminary, Resulted 03/24/21 Blood Culture - Preliminary, Resulted 03/24/21 Respiratory Virus Panel (PCR) ([facility]) - Final, Complete SARS-CoV-2 (COVID 19) KALPESH NEAL MD Mar 26, 2021 09:27
[2021-03-26] MEDS: cefTRIAXone SOD 1 GM in D5W MINI-BAG PLUS 50 ML IV SCH (11:00)
[2021-03-26 14:00] VITALS: BP 139/86
[2021-03-26] MEDS ORDERED: PRED10TA2 PO (16:20)
[2021-03-26] MEDS ORDERED: DOXY-350 PO (16:20)
[2021-03-26] MEDS ORDERED: BACI1CAP PO (16:20)
[2021-03-26] MEDS ORDERED: CEFD300CAP PO (16:20)
[2021-03-26 20:00] VITALS: BP 139/71; O2SAT 96
[2021-03-26] MEDS: SODIUM CHLORIDE 0.9% INJ 10 ML SYR IV SCH (20:04)
[2021-03-26] MEDS: REMDESIVIR 100 MG in NS 250 ML IV SCH (20:04)
[2021-03-27] VITALS: BP 144/70; O2SAT 94
[2021-03-27 04:00] VITALS: BP 158/81; O2SAT 93
[2021-03-27 07:01] LABS: BASO % 0.3 % (0.0-1.0); EOS # 0.1 10^3/uL (0.0-0.5); EOS % 1.6 % (0.0-3.0); HEMATOCRIT 37.4 % (42.0-52.0); HEMOGLOBIN 11.5 g/dl (13.5-17.5); LYMPH # 1.2 10^3/uL (1.5-5.0); LYMPH % 16.7 % (24.0-44.0); MEAN CORPUSCULAR HEMOGLOBIN 25.8 pg (27.0-33.0); MEAN CORPUSCULAR HGB CONC 30.7 g/dl (32.0-36.5); MEAN CORPUSCULAR VOLUME 83.9 fl (80.0-96.0); MONO # 0.8 10^3/uL (0.0-0.8); NEUTROPHILS # 4.8 10^3/uL (1.5-8.5); NEUTROPHILS % 69.5 % (36.0-66.0); PLATELET COUNT, AUTOMATED 217 10^3/uL (150-450); RED BLOOD COUNT 4.46 10^6/uL (4.30-6.10); WHITE BLOOD COUNT 6.9 10^3/uL (4.0-10.0)
[2021-03-27 07:13] LABS: INR 1.23; PROTHROMBIN TIME 15.9 SECONDS (12.7-14.5)
[2021-03-27 07:14] LABS: PARTIAL THROMBOPLASTIN TIME 42.7 SECONDS (25.9-37.0)
[2021-03-27 07:24] LABS: ALBUMIN 1.8 GM/DL (3.2-5.2); ALT/SGPT 21 U/L (12-78); BILIRUBIN,DIRECT 0.2 MG/DL (0.0-0.2); BILIRUBIN,TOTAL 0.4 MG/DL (0.2-1.0); BLOOD UREA NITROGEN 16 MG/DL (7-18); CALCIUM LEVEL 8.2 MG/DL (8.8-10.2); CARBON DIOXIDE LEVEL 32 MEQ/L (21-32); CHLORIDE LEVEL 103 MEQ/L (98-107); CPK CREATINE PHOSPHOKINASE 36 U/L (39-308); CREATININE FOR GFR 0.68 MG/DL (0.70-1.30); FERRITIN 274 NG/ML (26-388); GLOMERULAR FILTRATION RATE > 60.0 (>42); GLUCOSE, FASTING 77 MG/DL (70-100); LDH LACTATE DEHYDROGENASE 238 U/L (87-241); MAGNESIUM LEVEL 1.9 MG/DL (1.8-2.4); NT-PRO BNP 1515 PG/ML (<450); POTASSIUM SERUM 3.7 MEQ/L (3.5-5.1); SODIUM LEVEL 139 MEQ/L (136-145); TOTAL PROTEIN 5.9 GM/DL (6.4-8.2); TROPONIN I 0.14 NG/ML (< 0.10)
[2021-03-27] MEDS: ADVAIR HFA 115/21MCG INHALER INH SCH ×2 (08:09→20:08)
[2021-03-27 08:10] VITALS: O2SAT 92
[2021-03-27] MEDS ORDERED: LEVO750T13 PO (08:51)
[2021-03-27 09:41] VITALS: BP 135/75
[2021-03-27] MEDS: ASPIRIN ENTERIC 325 MG TAB PO SCH (09:42)
[2021-03-27] MEDS: PANTOPRAZOLE 40MG TAB (PROTONIX) PO SCH (09:42)
[2021-03-27] MEDS: ATORVASTATIN 20 MG TAB PO SCH (09:42)
[2021-03-27] MEDS: DOXYCYCLINE HYCLATE 100 MG in D5W MINI-BAG PLUS 100 ML IV SCH (09:42)
[2021-03-27] MEDS: dexameTHASONE 4 MG/ML 1ML VIAL (J1100 PER 1MG) IV SCH (09:43)
[2021-03-27] MEDS: ENOXAPARIN 100MG/1ML SYRINGE (J1650 PER 10MG) SC SCH ×2 (09:43→22:02)
[2021-03-27] MEDS ORDERED: cefTRIAXone SOD 2 GM in D5W MINI-BAG PLUS 50 ML IV SCH (11:00)
--- NOTE | 2021-03-27 12:29 | IPNPDOC ---
Date Seen The patient was seen on 03/27/21. Progress Note SUBJECTIVE: Patient continues to have cough productive of white sputum without fever chills Denies any shortness of breath and says "I feel okay." Discharge postponed due to bacteremia with blood culture x2 sets: Enterococcus He denies any dysuria urgency frequency flank pain. OBJECTIVE: VITAL SIGNS:see below GENERAL: No distress no cyanosis HEENT: No pallor awake, alert and oriented to person, place and time, No use of respiratory accessory muscles, cyanosis or JVD. LUNGS: Diminished. No wheezing or rales. no stridor I:E ratio 1-2 HEART: S1 and S2 sinus rhythm. ABDOMEN: Soft, nontender and nondistended. Positive bowel sounds. EXTREMITIES: No cyanosis, clubbing or pitting edema. LABORATORY DATA/IMAGING STUDIES/MICROBIOLOGY: Reviewed. ASSESSMENT AND PLAN: This is a 76-year-old male with a history of bovine aortic valve replacement, COPD, who presented with a two week history of malaise, dyspnea and chest pain, was found to be Coronavirus positive. IMPRESSION: COVID pneumonia with hypoxia, currently on supplemental oxygen, Remdesivir, Dexamethasone and supplemental oxygen to keep saturations above 90%. Suspected secondary bacterial pneumonia with elevated procalcitonin level, currently on Day #4 of IV ceftriaxone and IV doxycycline, but changed to ampicillin and ceftriaxone due to Enterococcus bacteremia Acute hypoxic respiratory failure -requiring supplemental oxygen - secondary to coronavirus and suspected bacterial pneumonia -Supportive care with IV remdesivir for coronavirus , and ceftriaxone and doxycycline day #4 for bacterial pneumonia, but changed to ampicillin and ceftriaxone due to Enterococcus bacteremia rule out endocarditis -supplemental oxygen to keep saturations above 90%. Enterococcus bacteremia -On 2 sets of blood cultures. Day #1 ceftriaxone 2 g IV every 24 and ampicillin 2 g IV every 4 hours -ID consulted rule out endocarditis -2D echo ordered -Defer to ID if transesophageal echo should be done in light of coronavirus pneumonia COPD, not in exacerbation, on Advair and bronchodilators as needed. Demand mediated ischemia secondary to hypoxia on oxygen and treatment for Coronavirus pneumonia. Hypertension. Continue on Lisinopril. Dyslipidemia, on atorvastatin. GERD, on Prilosec. bovine aortic valve on aspirin, DVT prophylaxis and aspirin and Lovenox. VS, I&O, 24H, Fishbone Vital Signs/I&O Vital Signs Date Time Temp Pulse Resp B/P (MAP) Pulse Ox O2 Delivery O2 Flow Rate FiO2 03/27/21 09:54 93 Nasal Cannula 1.0 03/27/21 09:41 98.0 96 30 135/75 (95) I&O- Last 24 Hours up to 6 AM 03/27/21 06:00 Intake Total 1680 ml Balance 1680 ml Laboratory Data 24H LABS Laboratory Tests 2 03/27/21 06:30: Immature Granulocyte % (Auto) 0.9, Neutrophils (%) (Auto) 69.5H, Lymphocytes (%) (Auto) 16.7L, Monocytes (%) (Auto) 11.0H, Eosinophils (%) (Auto) 1.6, Basophils (%) (Auto) 0.3, Neutrophils # (Auto) 4.8, Lymphocytes # (Auto) 1.2L, Monocytes # (Auto) 0.8, Eosinophils # (Auto) 0.1, Basophils # (Auto) 0.0, Nucleated Red Blood Cells % (auto) 0.0, Prothrombin Time 15.9H, Prothromb Time International Ratio 1.23, Activated Partial Thromboplast Time 42.7H, Fibrinogen 418, Anion Gap 4L, Glomerular Filtration Rate > 60.0, Calcium Level 8.2L, Magnesium Level 1.9, Ferritin 274, Total Bilirubin 0.4, Direct Bilirubin 0.2, Aspartate Amino Transf (AST/SGOT) 28, Alanine Aminotransferase (ALT/SGPT) 21, Alkaline Phosphatase 83, Lactate Dehydrogenase 238, Total Creatine Kinase 36L, Troponin I 0.14H, MT-Ikv-K-Type Natriuretic Peptide 1515H, Total Protein 5.9L, Albumin 1.8L, Albumin/Globulin Ratio 0.4, Procalcitonin 0.19 03/27/21 11:01: Erythrocyte Sedimentation Rate 25H, C-Reactive Protein, Quantitative 4.48H CBC/BMP Laboratory Tests 03/27/21 06:30 Microbiology Microbiology 03/27/21 Blood Culture, Received Pending 03/27/21 Blood Culture, Received Pending 03/24/21 Blood Culture - Final, Complete Enterococcus Faecalis 03/24/21 Blood Culture - Final, Complete Enterococcus Faecalis 03/24/21 Respiratory Virus Panel (PCR) ([facility]) - Final, Complete SARS-CoV-2 (COVID 19) KALPESH NEAL MD Mar 27, 2021 12:29
[2021-03-27] MEDS: AMPICILLIN SOD 2 GM in D5W MINI-BAG PLUS 100 ML IV SCH ×3 (13:11→22:02)
[2021-03-27 14:20] VITALS: BP 114/61
[2021-03-27] MEDS ORDERED: ISOVUE-370 76% 100ML VIAL As Ordered ONE (14:49)
--- NOTE | 2021-03-27 16:30 | REP ---
INDICATION: flank pain r/o splenic infarct. COMPARISON: Comparison is made with chest x-ray from March 24, 2021. Comparison CT study is from June 10, 2017. TECHNIQUE: Helical scanning is acquired and 3 mm axial images re-formatted. Coronal and sagittal MPR images are generated. The CT contrast enhancement dose is 100 mL of intravenous Isovue 370. FINDINGS: Preliminary digital information technology professor radiograph and axial CT images at lung windows demonstrate the presence of a large dense consolidative infiltrate in the right lower lobe consistent with pneumonia. There are small bilateral pleural effusions. The liver is normal in size homogeneous in texture. The spleen is mildly enlarged measuring 12.8 cm in greatest diameter similar to the prior study. It enhances homogeneously. There is no evidence of splenic infarction. There is bilateral mild adrenal hyperplasia again noted unchanged from the prior study. No abnormality is noted the pancreas. The gallbladder is small and contracted in appearance. There is a cyst in the periphery of the left kidney as previously noted. There is a small cyst in the lower pole the right kidney. No renal mass or hydronephrosis is seen. Vascular calcification is seen. No aortic aneurysm. No retroperitoneal mass or adenopathy is observed. Small and large intestinal bowel loops are unremarkable. There is moderate left colonic diverticulosis without CT evidence of diverticulitis. Seminal vesicles prostate and urinary bladder are unremarkable. No bony destructive lesion is appreciated. IMPRESSION: Mild splenomegaly. No evidence of splenic infarction. Extensive right lower lobe pneumonia. Very small bilateral pleural effusions. Left colonic diverticulosis without CT evidence of diverticulitis. Left renal cyst. <Electronically signed by Andrey Michel > 03/27/21 [id number]
[2021-03-27 20:00] VITALS: BP_SYST 140; BP_SYST 148; BP_DIAS 56; BP_DIAS 70; O2SAT 96
[2021-03-27] MEDS: REMDESIVIR 100 MG in NS 250 ML IV SCH (20:34)
[2021-03-27] MEDS: SODIUM CHLORIDE 0.9% INJ 10 ML SYR IV SCH (20:34)
[2021-03-27] MEDS: cefTRIAXone SOD 2 GM in D5W MINI-BAG PLUS 50 ML IV SCH (22:59)
[2021-03-28] VITALS (10 sets, daily range): BP systolic 111–144; BP diastolic 62–77; O2SAT 93–95
[2021-03-28] MEDS: AMPICILLIN SOD 2 GM in D5W MINI-BAG PLUS 100 ML IV SCH ×6 (00:58→21:37)
[2021-03-28] MEDS: ADVAIR HFA 115/21MCG INHALER INH SCH ×2 (07:50→20:02)
[2021-03-28] MEDS: PANTOPRAZOLE 40MG TAB (PROTONIX) PO SCH (09:00)
[2021-03-28] MEDS: ASPIRIN ENTERIC 325 MG TAB PO SCH (09:00)
[2021-03-28] MEDS: ATORVASTATIN 20 MG TAB PO SCH (09:00)
[2021-03-28] MEDS: dexameTHASONE 4 MG/ML 1ML VIAL (J1100 PER 1MG) IV SCH (09:02)
[2021-03-28] MEDS: ENOXAPARIN 100MG/1ML SYRINGE (J1650 PER 10MG) SC SCH ×2 (09:04→21:38)
[2021-03-28 10:07] LABS: BASO % 0.3 % (0.0-1.0); EOS # 0.1 10^3/uL (0.0-0.5); EOS % 1.6 % (0.0-3.0); HEMATOCRIT 36.1 % (42.0-52.0); HEMOGLOBIN 11.1 g/dl (13.5-17.5); LYMPH % 14.6 % (24.0-44.0); MEAN CORPUSCULAR HEMOGLOBIN 26.1 pg (27.0-33.0); MEAN CORPUSCULAR HGB CONC 30.7 g/dl (32.0-36.5); MEAN CORPUSCULAR VOLUME 84.7 fl (80.0-96.0); MONO # 0.8 10^3/uL (0.0-0.8); MONO % 11.3 % (2.0-8.0); NEUTROPHILS % 71.2 % (36.0-66.0); PLATELET COUNT, AUTOMATED 204 10^3/uL (150-450); RED BLOOD COUNT 4.26 10^6/uL (4.30-6.10); WHITE BLOOD COUNT 7.1 10^3/uL (4.0-10.0)
--- NOTE | 2021-03-28 10:13 | CR ---
INFECTIOUS DISEASE CONSULTATION DATE: 03/27/2021 HISTORY OF PRESENT ILLNESS: The patient is a 76-year-old male who presented to the hospital for about one month of feeling unwell with shortness of breath. He states that he had progressively worsening shortness of breath about one month ago which he did not think was bothering him until more recently. He did get evaluation multiple times over the last month for left sided hip pain. He went to the ER on 03/06 and waited for six hours before leaving without being seen. He then went to [facility] instead. He states he had some testing there for his left hip pain and was sent home with some medication of which he cannot remember what it was. He states he was then sent to Orthopedics who gave him more medication, again he cannot remember what medications he was given. He states none of the medications really helped with his left hip pain. However, he was sent to Physical Therapy which he attended for the first time last week on 03/17/2021. He states his left hip pain has completely resolved since his one session of Physical Therapy that day. However, he has noted shortness of breath over this entire period of time. He does have a chronic cough which he says has not changed at all since the past month when he has been feeling short of breath. He denies any chest pain. He does state he has had some chest congestion in the past two weeks. He also notes some chronic pain along the scar where he had open heart surgery. However, this is unchanged. When the patient presented to the ER, he tested positive for COVID-19. He was also found to be hypoxic. He was admitted for treatment and oxygen supplementation therapy. At that time, a chest x-ray was done which showed consolidation and he was started on IV antibiotics. Blood cultures on admission grew positive for enterococcus faecalis x2. The patient had been covered on antibiotics with Ceftriaxone and Doxycycline for his pneumonia. The patient states that he has never had a colonoscopy before. The patient also has a history of valve replacement with a bovine valve in 2008. He had a CABG at that time as well. The patient states that he follows locally with Dr. Borrego for cardiology. He denies any issues with his open heart surgery or recovery afterward. He denies any infections in the past that he is aware of. PAST MEDICAL HISTORY: Hypertension, hyperlipidemia, COPD, bovine of aortic valve. PAST SURGICAL HISTORY: CABG and bovine aortic valve replacement in 2009, appendectomy, removal of bone spurs on the spine. FAMILY MEDICAL HISTORY: Patient is unaware of any medical conditions in his parents. SOCIAL HISTORY: Former smoker, quit nine years ago. Denies any alcohol use. Denies any history of illicit substance use. Lives at home with his . 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 REVIEW OF SYSTEMS: GENERAL: The patient reports feeling feverish without documented fever prior to admission. Denies chills, change in weight, or night sweats. HEENT: Denies change in vision, change in vision, change in hearing, sore throat or ear pain. CARDIOVASCULAR: Per HPI. RESPIRATORY: Per HPI. GI: Denies nausea, vomiting, abdominal pain, diarrhea, constipation or blood in the stool. : Denies dysuria or urinary frequency, or urinary urgency. SKIN: Denies rash. MUSCULOSKELETAL: Endorses left hip pain which is now resolved. Denies any additional joint pains. NEUROLOGIC: Denies headache or dizziness. PHYSICAL EXAMINATION: VITAL SIGNS: Temperature is 97.4 degrees Fahrenheit oral, heart rate 94, respiratory 26, blood pressure is 114/61, saturating 94% on 1 liter per minute via nasal cannula. GENERAL: Patient appears comfortable laying in bed in no acute distress. HEENT: Normocephalic, atraumatic. Moist mucous membranes. NECK: Supple. No lymphadenopathy or thyromegaly. CARDIOVASCULAR: Patient has a 3/6 systolic ejection murmur heard best at the right upper sternal border. Regular rate and rhythm. LUNGS: Breath sounds are diminished bilaterally. No wheezing, rhonchi or rales are appreciated. ABDOMEN: Soft, nontender and nondistended. Bowel sounds are present. EXTREMITIES: No edema appreciated. SKIN: No rash appreciated. NEUROLOGIC: No focal deficits appreciated PSYCHIATRIC: Alert and oriented x3 to person, place and time. LABORATORY DATA: White blood cell count is 6.9, hemoglobin 11.5, hematocrit is 37.4, platelet count is 217,000. ESR 25. CRP 4.48. Microbiology: Two blood cultures drawn on 03/04/2021: Positive for enterococcus faecalis. Respiratory panel positive for SARS-COV2. IMAGING: Chest x-ray shows extensive consolidation in the right lung base and interstitial opacities in the left lung base per radiologist report. ASSESSMENT AND PLAN: This is a 76-year-old male with a history of one month of progressive shortness of breath admitted to the hospital for hypoxia related to COVID-19 pneumonia, found to have two positive blood cultures for enterococcus faecalis. At this point, the source is unknown. We will get a CT of the abdomen and pelvis to evaluate for GI source. Considering he has never had a colonoscopy, colonic polyp versus neoplasm is a potential source of this infection. We would recommend at some point he get a colonoscopy to screen for colon cancer, although this does not need to be done urgently. Given his history of aortic valve replacement, two positive blood cultures, and unknown source of bacteremia, he will at least need a TTE to evaluate for endocarditis and will likely need a WIN if this is negative to rule out infective endocarditis. There is a high suspicion of infective endocarditis in this patient. Regarding his antibiotics, we have changed him to Ampicillin 2 grams q. 4 hours IV and Ceftriaxone 2 grams q. 12 hours IV for appropriate coverage of enterococcus faecalis. Thank you for this consultation, we will continue to follow along with the care of this patient.
[2021-03-28 10:40] LABS: BLOOD UREA NITROGEN 14 MG/DL (7-18); CARBON DIOXIDE LEVEL 33 MEQ/L (21-32); CHLORIDE LEVEL 104 MEQ/L (98-107); CREATININE FOR GFR 0.74 MG/DL (0.70-1.30); GLOMERULAR FILTRATION RATE > 60.0 (>42); GLUCOSE, FASTING 85 MG/DL (70-100); MAGNESIUM LEVEL 2.1 MG/DL (1.8-2.4); POTASSIUM SERUM 4.3 MEQ/L (3.5-5.1); SODIUM LEVEL 140 MEQ/L (136-145)
--- NOTE | 2021-03-28 11:42 | IPNPDOC ---
Date Seen The patient was seen on 03/28/21. Progress Note SUBJECTIVE: says less CASE with ambulation from bed to bathroom and back. no cp, fever, or chills. sob better good appetite . no n/v/d/abd pain/ramírez OBJECTIVE: VITAL SIGNS:see below GENERAL: supine at 45 degrees with 2decho being done at the bedside. no distress HEENT: no jvd moist mm LUNGS: Diminished. No wheezing or rales. ABDOMEN: Soft, nontender and nondistended. Positive bowel sounds. EXTREMITIES: No cyanosis, clubbing or pitting edema. LABORATORY DATA/IMAGING STUDIES/MICROBIOLOGY: Reviewed. ASSESSMENT AND PLAN: This is a 76-year-old male with a history of bovine aortic valve replacement, COPD, who presented with a two week history of malaise, dyspnea and chest pain, was found to be Coronavirus positive. 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 2D echo report pending ID consulted once stable, will need GI workup for malignancy due to association of enterococ cus bacteremia with colon ca. covid sx's improved. DVT prophylaxis and aspirin and Lovenox. VS, I&O, 24H, Fishbone Vital Signs/I&O Vital Signs Date Time Temp Pulse Resp B/P (MAP) Pulse Ox O2 Delivery O2 Flow Rate FiO2 03/28/21 09:00 144/77 03/28/21 06:00 97.1 75 19 93 Nasal Cannula 1.0 I&O- Last 24 Hours up to 6 AM 03/28/21 06:00 Intake Total 2420 ml Output Total 200 ml Balance 2220 ml Laboratory Data 24H LABS Laboratory Tests 2 03/28/21 02:45: Urine Color YELLOW, Urine Appearance CLEAR, Urine pH 6.0, Urine Specific [place] 1.030, Urine Protein NEGATIVE, Urine Glucose (UA) NEGATIVE, Urine Ketones NEGATIVE, Urine Blood NEGATIVE, Urine Nitrite NEGATIVE, Urine Bilirubin NEGATIVE, Urine Urobilinogen 0.2, Urine Leukocyte Esterase NEGATIVE, Urine WBC (Auto) 0, Urine RBC (Auto) 1, Urine Hyaline Casts (Auto) 0, Urine Bacteria ( Auto) NEGATIVE, Urine Squamous Epithelial Cells 0, Urine Mucus (Auto) SMALL, Urine Sperm (Auto) 03/28/21 09:13: Immature Granulocyte % (Auto) 1.0, Neutrophils (%) (Auto) 71.2H, Lymphocytes (%) (Auto) 14.6L, Monocytes (%) (Auto) 11.3H, Eosinophils (%) (Auto) 1.6, Basophils (%) (Auto) 0.3, Neutrophils # (Auto) 5.0, Lymphocytes # (Auto) 1.0L, Monocytes # (Auto) 0.8, Eosinophils # (Auto) 0.1, Basophils # (Auto) 0.0, Nucleated Red Blood Cells % (auto) 0.0, Anion Gap 3L, Glomerular Filtration Rate > 60.0, Calcium Level 8.0L, Magnesium Level 2.1 CBC/BMP Laboratory Tests 03/28/21 09:13 Microbiology Microbiology 03/27/21 Blood Culture - Preliminary, Resulted No growth after 24 hours . All specim... 03/27/21 Blood Culture - Preliminary, Resulted No growth after 24 hours . All specim... 03/24/21 Blood Culture - Final, Complete Enterococcus Faecalis 03/24/21 Blood Culture - Final, Complete Enterococcus Faecalis 03/24/21 Respiratory Virus Panel (PCR) (NURY) - Final, Complete SARS-CoV-2 (COVID 19) KALPESH NEAL MD Mar 28, 2021 11:42
[2021-03-28] MEDS: cefTRIAXone SOD 2 GM in D5W MINI-BAG PLUS 50 ML IV SCH ×2 (11:46→22:31)
--- NOTE | 2021-03-28 14:42 | ECHO ---
ECHOCARDIOGRAM DATE OF PROCEDURE: 03/28/2021 Age: Gender: Height: 176 cm Weight: 64 kg REFERRING PHYSICIAN: Dr. Nati Villarreal. INDICATION: Bacteremia, COVID-19. MEASUREMENTS: 2D Measurements: Aortic annulus 1.9 cm Aortic root 3.2 cm Left atrium 4.2 cm Interventricular septum 1.62 cm Posterior wall 1.0 cm Left ventricle diastole 4.0 cm Inferior vena cava 1.0 (more than 50% respiratory variation) Doppler Measurements: Trace aortic regurgitation Moderate aortic stenosis Peak aortic valve velocity 340 cm/s LVOT velocity 113 cm/s Aortic valve VTI 66.1 cm Peak aortic valve gradient 46 mmHg Mean aortic valve gradient 26 mmHg LVOT VTI 23.1 cm No mitral regurgitation No mitral stenosis Mitral E velocity 115 cm/s Mitral A velocity 1.05 cm/s Mitral deceleration time 156 msec Very mild tricuspid regurgitation Estimated right ventricle systolic pressure 56-61 mmHg Estimated right atrial pressure 5-10 mmHg No pulmonic regurgitation Pulmonary artery acceleration time 76 msec MITRAL ANNULAR TISSUE DOPPLER E prime septal 8.05 cm/s, E prime lateral 10.6 cm/s DESCRIPTION: Rhythm was sinus. Image quality was good. No pericardial effusion. This was a 2D, M-mode, color flow Doppler, and pulsed wave Doppler examination including mitral annular tissue Doppler. CONCLUSIONS: 1. No vegetations on any of the cardiac valves. 2. Degenerative, calcific aortic valve disease of a 3-cusp aortic valve. Moderate aortic stenosis. Trace aortic regurgitation. 3. Mild mitral annular calcification. No mitral regurgitation. 4. Moderate hypertrophy of the interventricular septum. Normal LV wall thickness elsewhere. Normal regional LV wall motion and wall thickening. Normal LV systolic function. LVEF 65% by visual estimate. Normal LV diastolic function. 5. Suggestive of moderate elevation of pulmonary artery systolic pressure and estimated right ventricle systolic pressure. Estimated RV systolic pressure 56-61 mmHg assuming CVP of 5-10 mmHg. Normal right ventricle size. Mild right ventricle hypertrophy. Normal right ventricle systolic function. Very mild tricuspid regurgitation. No pulmonic regurgitation. 6. No pericardial effusion. 7. Otherwise normal appearing echocardiogram Doppler findings.
[2021-03-28] MEDS: REMDESIVIR 100 MG in NS 250 ML IV SCH (20:12)
[2021-03-28] MEDS: SODIUM CHLORIDE 0.9% INJ 10 ML SYR IV SCH (20:12)
[2021-03-28] MEDS ORDERED: ONDANSETRON 4MG/2ML VIAL IV ONE (21:40)
[2021-03-29] VITALS (9 sets, daily range): BP systolic 115–159; BP diastolic 68–79; O2SAT 94–96
[2021-03-29] MEDS: AMPICILLIN SOD 2 GM in D5W MINI-BAG PLUS 100 ML IV SCH ×6 (00:56→20:53)
[2021-03-29 06:21] LABS: BASO % 0.4 % (0.0-1.0); EOS # 0.2 10^3/uL (0.0-0.5); EOS % 2.9 % (0.0-3.0); HEMATOCRIT 34.8 % (42.0-52.0); HEMOGLOBIN 10.6 g/dl (13.5-17.5); LYMPH # 1.2 10^3/uL (1.5-5.0); LYMPH % 15.3 % (24.0-44.0); MEAN CORPUSCULAR HEMOGLOBIN 25.7 pg (27.0-33.0); MEAN CORPUSCULAR HGB CONC 30.5 g/dl (32.0-36.5); MEAN CORPUSCULAR VOLUME 84.5 fl (80.0-96.0); MONO # 0.8 10^3/uL (0.0-0.8); NEUTROPHILS # 5.6 10^3/uL (1.5-8.5); NEUTROPHILS % 70.4 % (36.0-66.0); PLATELET COUNT, AUTOMATED 210 10^3/uL (150-450); RED BLOOD COUNT 4.12 10^6/uL (4.30-6.10)
[2021-03-29 06:45] LABS: BLOOD UREA NITROGEN 14 MG/DL (7-18); CALCIUM LEVEL 7.7 MG/DL (8.8-10.2); CARBON DIOXIDE LEVEL 31 MEQ/L (21-32); CHLORIDE LEVEL 103 MEQ/L (98-107); CREATININE FOR GFR 0.64 MG/DL (0.70-1.30); GLOMERULAR FILTRATION RATE > 60.0 (>42); GLUCOSE, FASTING 88 MG/DL (70-100); MAGNESIUM LEVEL 2.1 MG/DL (1.8-2.4); POTASSIUM SERUM 3.9 MEQ/L (3.5-5.1); SODIUM LEVEL 137 MEQ/L (136-145)
[2021-03-29] MEDS: ADVAIR HFA 115/21MCG INHALER INH SCH ×2 (07:21→19:40)
[2021-03-29] MEDS: ENOXAPARIN 100MG/1ML SYRINGE (J1650 PER 10MG) SC SCH (09:32)
[2021-03-29] MEDS: ASPIRIN ENTERIC 325 MG TAB PO SCH (09:33)
[2021-03-29] MEDS: PANTOPRAZOLE 40MG TAB (PROTONIX) PO SCH (09:33)
[2021-03-29] MEDS: dexameTHASONE 4 MG/ML 1ML VIAL (J1100 PER 1MG) IV SCH (09:33)
[2021-03-29] MEDS: ATORVASTATIN 20 MG TAB PO SCH (09:33)
[2021-03-29] MEDS: cefTRIAXone SOD 2 GM in D5W MINI-BAG PLUS 50 ML IV SCH ×2 (09:34→23:00)
--- NOTE | 2021-03-29 09:39 | IPNPDOC ---
Date Seen The patient was seen on 03/29/21. Progress Note SUBJECTIVE: no c/o sob, cp, pressure, pnd, orthopnea, or cunningham. no f/c/n/v/abd pain/diarrhea spilled coffee on the floor while he was throwing out his tray did not slip and fall cough productive of white sputum OBJECTIVE: VITAL SIGNS:see below GENERAL:sitting up in bed in no distress HEENT: no jvd moist mm LUNGS:CTAB AEBE no wheezing ABDOMEN: Soft, nontender and nondistended. Positive bowel sounds. EXTREMITIES: No cyanosis, clubbing or pitting edema. LABORATORY DATA/IMAGING STUDIES/MICROBIOLOGY: Reviewed. ASSESSMENT AND PLAN: This is a 76-year-old male with a history of bovine aortic valve replacement, COPD, who presented with a two week history of malaise, dyspnea and chest pain, was found to be Coronavirus positive. 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 2D echo report pending. defer to ID if needs WIN to confirm endocarditis ID consulted. awaiting repeat blood cxs to be negative prior to picc line for fpc abx for endocarditis once stable, will need GI workup for malignancy due to association of enterococcus bacteremia with colon ca. covid sx's improved. DVT prophylaxis and aspirin and Lovenox. VS, I&O, 24H, Fishbone Vital Signs/I&O Vital Signs Date Time Temp Pulse Resp B/P (MAP) Pulse Ox O2 Delivery O2 Flow Rate FiO2 03/29/21 09:33 159/79 03/29/21 06:00 1.0 03/29/21 05:49 96.9 79 18 93 Nasal Cannula I&O- Last 24 Hours up to 6 AM 03/29/21 06:00 Intake Total 1380 ml Balance 1380 ml Laboratory Data 24H LABS Laboratory Tests 2 03/29/21 05:55: Immature Granulocyte % (Auto) 1.0, Neutrophils (%) (Auto) 70.4H, Lymphocytes (%) (Auto) 15.3L, Monocytes (%) (Auto) 10.0H, Eosinophils (%) (Auto) 2.9, Basophils (%) (Auto) 0.4, Neutrophils # (Auto) 5.6, Lymphocytes # (Auto) 1.2L, Monocytes # (Auto) 0.8, Eosinophils # (Auto) 0.2, Basophils # (Auto) 0.0, Nucleated Red Blood Cells % (auto) 0.0, Anion Gap 3L, Glomerular Filtration Rate > 60.0, Calcium Level 7.7L, Magnesium Level 2.1 CBC/BMP Laboratory Tests 03/29/21 05:55 Microbiology Microbiology 03/27/21 Blood Culture - Preliminary, Resulted 03/27/21 Blood Culture - Preliminary, Resulted 03/24/21 Blood Culture - Final, Complete Enterococcus Faecalis 03/24/21 Blood Culture - Final, Complete Enterococcus Faecalis 03/24/21 Respiratory Virus Panel (PCR) (NURY) - Final, Complete SARS-CoV-2 (COVID 19) KALPESH NEAL MD Mar 29, 2021 09:39
[2021-03-29] MEDS: ENOXAPARIN 30MG/0.3ML SYRINGE (J1650 PER 10MG) SC SCH (20:53)
[2021-03-30] MEDS: AMPICILLIN SOD 2 GM in D5W MINI-BAG PLUS 100 ML IV SCH ×6 (01:46→21:27)
[2021-03-30 05:34] LABS: BASO % 0.2 % (0.0-1.0); EOS # 0.2 10^3/uL (0.0-0.5); EOS % 2.5 % (0.0-3.0); HEMATOCRIT 36.7 % (42.0-52.0); HEMOGLOBIN 11.1 g/dl (13.5-17.5); LYMPH # 1.2 10^3/uL (1.5-5.0); LYMPH % 13.5 % (24.0-44.0); MEAN CORPUSCULAR HEMOGLOBIN 25.8 pg (27.0-33.0); MEAN CORPUSCULAR HGB CONC 30.2 g/dl (32.0-36.5); MEAN CORPUSCULAR VOLUME 85.2 fl (80.0-96.0); MONO # 0.7 10^3/uL (0.0-0.8); MONO % 7.7 % (2.0-8.0); NEUTROPHILS # 6.4 10^3/uL (1.5-8.5); PLATELET COUNT, AUTOMATED 228 10^3/uL (150-450); RED BLOOD COUNT 4.31 10^6/uL (4.30-6.10); WHITE BLOOD COUNT 8.6 10^3/uL (4.0-10.0)
[2021-03-30 05:51] VITALS: BP 124/71
[2021-03-30 05:57] LABS: BLOOD UREA NITROGEN 14 MG/DL (7-18); CALCIUM LEVEL 7.7 MG/DL (8.8-10.2); CARBON DIOXIDE LEVEL 33 MEQ/L (21-32); CHLORIDE LEVEL 102 MEQ/L (98-107); CREATININE FOR GFR 0.72 MG/DL (0.70-1.30); GLOMERULAR FILTRATION RATE > 60.0 (>42); GLUCOSE, FASTING 76 MG/DL (70-100); SODIUM LEVEL 140 MEQ/L (136-145)
[2021-03-30] MEDS: ADVAIR HFA 115/21MCG INHALER INH SCH ×2 (07:22→19:55)
[2021-03-30] MEDS: ATORVASTATIN 20 MG TAB PO SCH (09:07)
[2021-03-30] MEDS: dexameTHASONE 4 MG/ML 1ML VIAL (J1100 PER 1MG) IV SCH (09:07)
[2021-03-30] MEDS: ENOXAPARIN 30MG/0.3ML SYRINGE (J1650 PER 10MG) SC SCH ×2 (09:07→21:27)
[2021-03-30] MEDS: ASPIRIN ENTERIC 325 MG TAB PO SCH (09:07)
[2021-03-30] MEDS: PANTOPRAZOLE 40MG TAB (PROTONIX) PO SCH (09:08)
[2021-03-30] MEDS: cefTRIAXone SOD 2 GM in D5W MINI-BAG PLUS 50 ML IV SCH ×2 (11:25→22:32)
[2021-03-30 14:00] VITALS: BP 98/57
--- NOTE | 2021-03-30 14:39 | IPN ---
PROGRESS NOTE DATE: 03/30/2021 SUBJECTIVE: Patient denies fever, chills, shortness of breath, paroxysmal nocturnal dyspnea (PND), orthopnea, nausea, vomiting, loss of taste, loss of smell, diarrhea, constipation, muscle aches, joint pain. Patient says "I fell all right." PHYSICAL EXAMINATION: VITAL SIGNS: Temperature 97.8, pulse 62, respiratory rate 20, blood pressure 124/71, 94% on 1 liter nasal cannula. GENERAL: Patient is awake, alert, oriented to person, place and time, answering questions appropriately. LUNGS: Diminished. No wheezing or rales. HEART: S1, S2. Sinus rhythm. ABDOMEN: Soft, nontender, nondistended. Positive bowel sounds. EXTREMITIES: No cyanosis, clubbing or pitting edema. LABORATORY DATA/IMAGING STUDIES/MICROBIOLOGY: Have been reviewed. See the chart. ASSESSMENT: A 76-year-old male with history of bovine aortic valve replacement and chronic obstructive pulmonary disease (COPD), presented with two week history of malaise, dyspnea, chest pain, found to be coronavirus positive with pneumonia with suspected secondary bacterial infection. IMPRESSION: 1. COVID pneumonia with hypoxia, on supplemental oxygen. 2. Bacterial pneumonia, community-acquired. 3. Acute hypoxic respiratory failure secondary to coronavirus and bacterial pneumonia. 4. Possible subacute bovine aortic valve endocarditis with Enterococcus. 5. Chronic obstructive pulmonary disease (COPD), not in exacerbation. 6. Demand mediated ischemia, resolved. 7. Hypertension. 8. Dyslipidemia. 9. Gastroesophageal reflux disease (GERD). PLAN: Patient is currently on ceftriaxone and ampicillin for subacute endocarditis, as recommended by infectious disease specialist, Dr. Ibeth Pedersen. Enterococcus is generally associated with gastrointestinal (GI) malignancy, but patient currently has coronavirus pneumonia as well as probably secondary bacterial pneumonia, making endoscopy difficult due to his respiratory status. Infectious disease has been consulted. Two-dimensional echocardiogram has been obtained. Infectious disease will decide if esophagogastroduodenoscopy (EGD) and colonoscopy should be done during this admission. Patient will need a peripherally inserted central catheter (PICC) line and antibiotics as outpatient. MTDD
[2021-03-30 20:00] VITALS: BP 104/58
[2021-03-31] VITALS: O2SAT 96
[2021-03-31] MEDS: AMPICILLIN SOD 2 GM in D5W MINI-BAG PLUS 100 ML IV SCH ×6 (00:27→21:22)
[2021-03-31 04:00] VITALS: O2SAT 94
[2021-03-31 06:00] VITALS: BP 129/71
[2021-03-31 06:25] LABS: BASO % 0.3 % (0.0-1.0); EOS # 0.2 10^3/uL (0.0-0.5); EOS % 2.6 % (0.0-3.0); HEMOGLOBIN 10.6 g/dl (13.5-17.5); LYMPH # 1.1 10^3/uL (1.5-5.0); LYMPH % 12.8 % (24.0-44.0); MEAN CORPUSCULAR HEMOGLOBIN 26.2 pg (27.0-33.0); MEAN CORPUSCULAR HGB CONC 30.3 g/dl (32.0-36.5); MEAN CORPUSCULAR VOLUME 86.4 fl (80.0-96.0); MONO # 0.7 10^3/uL (0.0-0.8); MONO % 8.4 % (2.0-8.0); NEUTROPHILS # 6.5 10^3/uL (1.5-8.5); NEUTROPHILS % 75.1 % (36.0-66.0); PLATELET COUNT, AUTOMATED 212 10^3/uL (150-450); RED BLOOD COUNT 4.05 10^6/uL (4.30-6.10); WHITE BLOOD COUNT 8.6 10^3/uL (4.0-10.0)
[2021-03-31 06:48] LABS: BLOOD UREA NITROGEN 16 MG/DL (7-18); C REACTIVE PROTEIN QUANTITATIV 1.68 MG/DL (0.00-0.30); CALCIUM LEVEL 7.7 MG/DL (8.8-10.2); CARBON DIOXIDE LEVEL 34 MEQ/L (21-32); CHLORIDE LEVEL 103 MEQ/L (98-107); CREATININE FOR GFR 0.74 MG/DL (0.70-1.30); GLOMERULAR FILTRATION RATE > 60.0 (>42); GLUCOSE, FASTING 85 MG/DL (70-100); MAGNESIUM LEVEL 2.2 MG/DL (1.8-2.4); POTASSIUM SERUM 4.4 MEQ/L (3.5-5.1); SODIUM LEVEL 139 MEQ/L (136-145)
[2021-03-31 06:52] LABS: ERYTHROCYTE SEDIMENTATION RATE 12 mm/hr (0-20)
[2021-03-31] MEDS: ADVAIR HFA 115/21MCG INHALER INH SCH ×2 (08:01→22:53)
[2021-03-31] MEDS: ATORVASTATIN 20 MG TAB PO SCH (08:40)
[2021-03-31] MEDS: ENOXAPARIN 30MG/0.3ML SYRINGE (J1650 PER 10MG) SC SCH ×2 (08:40→21:21)
[2021-03-31] MEDS: dexameTHASONE 4 MG/ML 1ML VIAL (J1100 PER 1MG) IV SCH (08:40)
[2021-03-31] MEDS: PANTOPRAZOLE 40MG TAB (PROTONIX) PO SCH (08:41)
[2021-03-31] MEDS: ASPIRIN ENTERIC 325 MG TAB PO SCH (08:41)
--- NOTE | 2021-03-31 11:27 | IPN ---
PROGRESS NOTE DATE: 03/31/2021 SUBJECTIVE: Patient denies any chest pain, pressure, tightness. He continues to have shortness of breath requiring 1 liter nasal cannula, dropped down 87% when he speaks and ambulates. No complaints of diarrhea, abdominal pain, nausea, vomiting. Appetite is good. No headaches. Has a chronic cough. Temperature 95.9, pulse 78, respiratory rate 20, blood pressure 129/71, 92% on 1 liter nasal cannula. Generally: Awake, alert, oriented to person, place, and time, answering questions appropriately. No use of respiratory accessory muscles. No pallor, icterus, or cyanosis. Neck: No jugular venous distension (JVD), thyromegaly, or cervical lymphadenopathy. No stridor. Lungs are diminished, no wheezing or rales. Heart: S1, S2, sinus rhythm. Abdomen: Soft, nontender, nondistended, positive bowel sounds. Extremities: No cyanosis, clubbing, or pitting edema. Laboratory data, imaging studies, and microbiology have been reviewed. Blood cultures on 03/24/2021 and 03/27/2021 are still positive for Enterococcus (E) faecalis. 03/30/2021 and 03/31/2021 blood cultures are still pending. ASSESSMENT AND PLAN: This is a 76-year-old male admitted on 03/24/2021 for Coronavirus pneumonia and secondary bacterial pneumonia, found to have Enterococcus in his blood culture, diagnosed with bovine aortic valve subacute endocarditis, currently on IV ampicillin and ceftriaxone. ACTIVE ISSUES: Are as follows: 1. COVID pneumonia with hypoxia on supplemental oxygen, bacterial pneumonia community-acquired, acute hypoxic respiratory failure secondary to Coronavirus and bacterial pneumonia. 2. 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 3. Enterococcus bacteremia. Rule out gastrointestinal (GI) malignancy. 4. Chronic obstructive pulmonary disease (COPD). Not in exacerbation. 5. Demand mediated ischemia, resolved. 6. Hypertension. 7. Dyslipidemia. 8. Gastroesophageal reflux disease (GERD). PLAN: Patient is covered with ceftriaxone and ampicillin for Enterococcus endocarditis managed by infectious disease specialist, Dr. Ibeth Pedersen. 2D echo read by Dr. Hernandez Gasca on 03/28/2021 shows normal appearing echocardiogram with moderate aortic stenosis, ejection fraction (EF) of 65%, moderate elevation of pulmonary artery pressure with right ventricular pressure of 56-61 mmHg, right ventricular hypertrophy, and mild tricuspid regurgitation (TR). Will defer to infectious disease (ID) whether we need to proceed with transesophageal echo while the patient still has hypoxia requiring 1 liter of oxygen due to Coronavirus pneumonia and secondary bacterial pneumonia. Repeat blood cultures are still pending. If negative, patient will need a peripherally inserted central catheter (PICC) line and outpatient antibiotics. Continue all other present management.
[2021-03-31] MEDS: cefTRIAXone SOD 2 GM in D5W MINI-BAG PLUS 50 ML IV SCH ×2 (11:38→21:22)
[2021-03-31 17:57] VITALS: BP 124/72
--- NOTE | 2021-03-31 18:45 | IPN ---
PROGRESS NOTE DATE: 03/31/2021 SUBJECTIVE: Mr. Allison seems to be doing well. He denies any shortness of breath, except with exertion. He has no nausea, vomiting or diarrhea. He is anxious to go home. 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 Currently, his granddaughter and son are helping out. She is able to stay home alone, but needs help with her meals. He has had no fevers or chills. He has a mild dry cough. Temperature is 95.9, pulse 78, respirations 20, blood pressure 129/71, O2 saturation 92% on 1 liter of nasal cannula. LABORATORY DATA: White count 8.6, hemoglobin 10.6, hematocrit 35, platelets 212, 75% neutrophils, 13% lymphocytes, 8% monocytes. Erythrocyte sedimentation rate (ESR) 12. Sodium 139, potassium 4.4, chloride 103, bicarbonate 34, BUN 16, creatinine 0.74, glucose 85, calcium 7.7, magnesium 2.2, C-reactive protein 1.68. Blood cultures were positive for E. faecalis on 03/24, two sets and 03/27, two sets. On 03/30, blood cultures were negative, no growth after 24 hours. Review of the echocardiogram read by Dr. Gasca and the case was discussed with Dr. Gasca, who reviewed his echocardiogram done at Dr. Borrego' office on May 15, 2020. His aortic valve bioprosthesis was normally functioning. Currently, there is moderate aortic stenosis with mild aortic insufficiency which is new for him. OBJECTIVE: Physical Examination: Temperature 95.5 Heart: Normal, S1, S2 with a systolic ejection murmur 2/6 in the left upper sternal border, crescendo, decrescendo. Lungs: Decreased breath sounds. No wheezes, rales or rhonchi. Abdomen: Soft, nontender. No hepatosplenomegaly. Extremities: No clubbing, cyanosis or edema. Skin: No rash. IMPRESSION: 1. Enterococcus bacteremia with concern for endocarditis of his Bovine aortic valve with worsening aortic stenosis compared to a year ago. 2. COVID pneumonia with mild hypoxia. The patient is doing well. 3. Congestive heart failure with elevated BNP= 5,552 down to 1515. PLAN: Continue with IV ceftriaxone and ampicillin for presumptive Enterococcus endocarditis. The patient will need transesophageal echocardiogram done probably as an outpatient as he is clinically compensated and doing well. I will wait two weeks at least from his COVID 19 diagnosis. I have ordered a PICC line for tomorrow. His blood cultures are already negative. Consider discontinuing dexamethasone when hypoxia resolves. Consult for home IV antibiotics, ampicillin and Rocephin. The patient will need a two port PICC line as ampicillin will be a continuous infusion EORX 05/12/2021. The case was discussed with Dr. Gasca and will schedule him for an outpatient transesophageal echocardiogram. CASTILLO
[2021-03-31 20:00] VITALS: O2SAT 93
[2021-03-31 22:00] VITALS: BP 117/66
[2021-04-01] MEDS: AMPICILLIN SOD 2 GM in D5W MINI-BAG PLUS 100 ML IV SCH ×6 (01:45→22:26)
[2021-04-01 02:00] VITALS: O2SAT 91
[2021-04-01 04:45] VITALS: BP 114/65
[2021-04-01 06:00] VITALS: O2SAT 92
[2021-04-01] MEDS: ADVAIR HFA 115/21MCG INHALER INH SCH ×2 (07:53→22:27)
[2021-04-01] MEDS: ASPIRIN ENTERIC 325 MG TAB PO SCH (08:34)
[2021-04-01] MEDS: PANTOPRAZOLE 40MG TAB (PROTONIX) PO SCH (08:34)
[2021-04-01] MEDS: ATORVASTATIN 20 MG TAB PO SCH (08:35)
[2021-04-01] MEDS: ENOXAPARIN 30MG/0.3ML SYRINGE (J1650 PER 10MG) SC SCH ×2 (08:35→22:27)
[2021-04-01] MEDS ORDERED: LIDOCAINE 1% MDV 20ML VIAL As Ordered ONE (10:23)
[2021-04-01] MEDS: cefTRIAXone SOD 2 GM in D5W MINI-BAG PLUS 50 ML IV SCH ×2 (11:38→22:26)
[2021-04-01] MEDS ORDERED: SODIUM CHLORIDE 0.9% INJ 10 ML SYR IV PRN (14:25)
--- NOTE | 2021-04-01 16:05 | REP ---
PROCEDURE NAME: PICC LINE INSERTION W/SITERITE CLINICAL INFORMATION: efecalis endocarditis. COMPARISON: None. PROCEDURE DESCRIPTION: The procedure was performed by JIAN Estrada, under the direct supervision of Dr. Michel. The risks and benefits of the procedure were explained to the patient and an informed consent was obtained both verbally. This patient is currently COVID positive sin the nurse taking care of the patient sound consent for him. Directly prior to the start of the procedure a formal time-out was completed at the bedside. The right medial brachial vein was localized using ultrasound guidance. The skin was prepped and draped in sterile fashion. Three mL of 1% lidocaine 10 mg/mL was used as a local anesthetic. Using ultrasound guidance the right medial brachial vein was cannulated, and a 0.018 guidewire was inserted and advanced to the level of SVC using fluoroscopic guidance. The needle was removed and a 5.5 British dilator and peel-away sheath was inserted over the guidewire. A 5.5 British dual lumen catheter was cut to a length of 40 cm. The dilator was removed and the catheter was inserted over the guidewire with the tip ending at the level of the SVC. The peel-away sheath was removed and the catheter was flushed with heparinized saline as per hospital protocol. The catheter was affixed to the skin and a sterile dressing was applied. The patient tolerated the procedure well and there were no immediate complications. CONCLUSION: PICC line insertion into the right medial brachial vein. Imaging for this procedure was obtained with serial portable chest x-rays, no fluoroscopy was utilized. <Electronically signed by Niki Torres > 04/01/21 [id number] <Electronically signed by Andrey Michel > 04/01/21 0500
--- NOTE | 2021-04-01 16:31 | IPNPDOC ---
Subjective Date Seen The patient was seen on 04/01/21. Subjective Chief Complaint/HPI Patient does not offer any complaints this morning eager to go home. Patient is at room air mostly however when he ambulates or does his ADLs he does drop to about 88 to 89% but quickly recovers on rest to 92%. No fever or chills no chest pain or shortness of breath. Objective Physical Examination General Exam: Positive: Alert, Cooperative, No Acute Distress Eye Exam: Positive: EOMI; Negative: Sclera icteric ENT Exam: Positive: Atraumatic Neck Exam: Positive: Supple; Negative: JVD, thyromegaly Chest Exam: Positive: Diminished, Other (Coarse crackles at the right base and infraaxillary region) Heart Exam: Positive: Rate Normal, Regular Rhythm, Murmurs (Soft systolic murmur) Abdomen Exam: Positive: Normal bowel sounds, Soft; Negative: Tenderness Extremity Exam: Negative: Edema Neuro Exam: Positive: Normal Speech Psych Exam: Positive: Mental status NL, Mood NL, Memory Intact, Oriented x 3 Assessment /Plan Assessment This is a 76-year-old male admitted on 03/24/2021 for Coronavirus pneumonia and secondary bacterial pneumonia, found to have Enterococcus in his blood culture, diagnosed with bovine aortic valve subacute endocarditis, currently on IV ampicillin and ceftriaxone. Acute hypoxic respiratory failure due to Covid pneumonia and secondary bacterial pneumonia Now resolved At present in room air Will DC dexamethasone Covid pneumonia Finished dexamethasone and remdesivir Right sided bacterial pneumonia Community-acquired secondary to viral infection Patient is on ceftriaxone and ampicillin Prosthetic aortic valve endocarditis with Enterococcus. With new onset of moderate aortic stenosis and mild aortic regurgitation which is a change in the echo from 2019. Also has moderate pulmonary hypertension Ampicillin and ceftriaxone for 1 month Will need transesophageal echocardiogram to be done as an outpatient. At least 2 weeks after positive Covid test. Follow-up with Dr. Gasca Enterococcus bacteremia. Rule out gastrointestinal (GI) malignancy. Will need a colonoscopy after infection is treated Chronic obstructive pulmonary disease (COPD). Not in exacerbation. Continue Advair Demand mediated ischemia, resolved. Hypertension. Continue lisinopril Dyslipidemia. Continue statin Gastroesophageal reflux disease (GERD). Plan/VTE VTE Prophylaxis Ordered?: Yes VS, I&O, 24H, Fishbone Vital Signs/I&O Vital Signs Date Time Temp Pulse Resp B/P (MAP) Pulse Ox O2 Delivery O2 Flow Rate FiO2 04/01/21 10:40 98.0 81 20 92 Room Air 04/01/21 08:34 114/65 03/31/21 09:00 1.0 I&O- Last 24 Hours up to 6 AM 04/01/21 06:00 Intake Total 1740 ml Balance 1740 ml Laboratory Data Microbiology Microbiology 03/31/21 Blood Culture - Preliminary, Resulted No growth after 24 hours . All specim... 03/31/21 Blood Culture - Preliminary, Resulted No growth after 24 hours . All specim... 03/30/21 Blood Culture - Preliminary, Resulted No Growth after 48 hours. All Specime... 03/30/21 Blood Culture - Preliminary, Resulted No Growth after 48 hours. All Specime... 03/27/21 Blood Culture - Final, Complete Enterococcus Faecalis 03/27/21 Blood Culture - Final, Complete Enterococcus Faecalis 03/24/21 Blood Culture - Final, Complete Enterococcus Faecalis 03/24/21 Blood Culture - Final, Complete Enterococcus Faecalis 03/24/21 Respiratory Virus Panel (PCR) (NURY) - Final, Complete SARS-CoV-2 (COVID 19) Anahy Armas MD Apr 01, 2021 16:31
[2021-04-01] MEDS: SODIUM CHLORIDE 0.9% INJ 10 ML SYR IV SCH (18:04)
[2021-04-01 20:00] VITALS: O2SAT 90
[2021-04-01 22:00] VITALS: BP 117/62
[2021-04-02 02:00] VITALS: O2SAT 92
[2021-04-02] MEDS: AMPICILLIN SOD 2 GM in D5W MINI-BAG PLUS 100 ML IV SCH ×3 (02:02→08:43)
[2021-04-02] MEDS: SODIUM CHLORIDE 0.9% INJ 10 ML SYR IV SCH (04:45)
[2021-04-02 05:41] VITALS: BP 132/80
[2021-04-02] MEDS: cefTRIAXone SOD 2 GM in D5W MINI-BAG PLUS 50 ML IV SCH (07:56)
[2021-04-02] MEDS: ADVAIR HFA 115/21MCG INHALER INH SCH (08:00)
[2021-04-02] MEDS: ASPIRIN ENTERIC 325 MG TAB PO SCH (09:20)
[2021-04-02 09:21] VITALS: BP 132/80
[2021-04-02] MEDS: ATORVASTATIN 20 MG TAB PO SCH (09:21)
[2021-04-02] MEDS: ENOXAPARIN 30MG/0.3ML SYRINGE (J1650 PER 10MG) SC SCH (09:21)
[2021-04-02] MEDS: PANTOPRAZOLE 40MG TAB (PROTONIX) PO SCH (09:21)
--- NOTE | 2021-04-02 10:21 | IPN ---
PROGRESS NOTE DATE: 04/01/2021 Mr. Allison is anxious to go home. He has been off oxygen. His oxygen saturation is 92% on room air, and he states whenever he walks to the bathroom and back he does drop to 89%, but he quickly recovers. He denies any fever or chills. No chest pain or shortness of breath. No lower extremity edema. PHYSICAL EXAMINATION: HEART: Normal S1, S2 with a systolic ejection murmur 2/6, best heard at the left upper sternal border. LUNGS: Diminished at the bases with some crackles at the right side. No wheezes or rhonchi. ABDOMEN: Soft, nontender. No hepatosplenomegaly. EXTREMITIES: No clubbing, cyanosis, or edema. LABORATORY DATA: White count 8.6, hemoglobin 10.6, hematocrit 35, platelets 212, 75% neutrophils, 12% lymphocytes, 8% monocytes. Sodium 139, potassium 4.4, chloride 103, bicarbonate 34, BUN 16, creatinine 0.74, glucose 85, calcium 7.7, magnesium 2.2. CRP 1.68. IMPRESSION: 1-Enterococcus faecalis bacteremia with presumptive endocarditis of the bioprosthetic aortic valve with some worsening aortic stenosis compared to previous echocardiogram done in 2019. Patient is on intravenous (IV) ampicillin and ceftriaxone. Patient will be on a 12-gram continuous infusion at home of ampicillin and 2 grams every 12 of IV Rocephin. The patient had a peripherally inserted central catheter (PICC) line placed today. 2. COVID-19 pneumonia status post 5 days of remdesivir and Decadron have been discontinued. 3. Congestive heart failure with elevated brain natriuretic peptide (BNP), probably related this aortic stenosis. PLAN: Followup with infectious disease in 2 weeks after discharge. Followup with Dr. Gasca and Dr. Borrego. The patient will need outpatient transesophageal echocardiogram to better visualize his aortic valve and make sure he does not have any paravalvular abscess or dehiscence. Patient will be discharged home tomorrow on 12 grams every 12 hours of ampicillin continuous infusion and Rocephin IV every 12 hours. Case has been discussed with [facility] for antibiotics. Patient will have [facility] nurses for home care and then call social insurance specialist. CASTILLO
[2021-04-03 18:08] LABS: BODY FLUID CULTURE Not indicated. (.); LEGIONELLA ANTIGEN URINE Negative (Negative); ORGANISM ID Not indicated. (.); SPECIMEN SOURCE Urine (.); URINE STREP PNEUMONIAE ANTIGEN Negative (Negative)
--- NOTE | 2021-04-05 21:02 | DS.PDOC ---
Discharge Summary General Date of Admission Mar 24, 2021 at 07:55 Date of Discharge 04/02/21 Discharge Summary PROCEDURES PERFORMED DURING STAY: [None]. DISCHARGE DIAGNOSES: Bovine prosthetic Aortic valve endocarditis with Enterococcus Enterococcus bacterimia Moderate Aortic stenosis and mild aortic regurgitation s/p Acute respiratory failure COVID pneumonia Secondary bacterial Pneumonia COPD Demand ischemia HTN GERD HLD COMPLICATIONS/CHIEF COMPLAINT: Covid-19,Hypoxia. HOSPITAL COURSE: This is a 76-year-old male admitted on 03/24/2021 for acute respiratory failure due to Coronavirus pneumonia and secondary bacterial pneumonia, found to have Enterococcus in his blood culture, diagnosed with bovine aortic valve subacute endocarditis, currently on IV ampicillin and ceftriaxone. Acute hypoxic respiratory failure due to Covid pneumonia and secondary bacterial pneumonia Now resolved At present in room air finished steroids. Covid pneumonia COVID diagnosed in 03/24/21 Finished dexamethasone and remdesivir Right sided bacterial pneumonia Community-acquired secondary to viral infection Patient is on ceftriaxone and ampicillin Prosthetic aortic valve endocarditis with Enterococcus. With new onset of moderate aortic stenosis and mild aortic regurgitation which is a change in the echo from 2019. Also has moderate pulmonary hypertension IV Ampicillin and IV ceftriaxone for 1 month Will need transesophageal echocardiogram to be done as an outpatient. At least 2 weeks after positive Covid test. Follow-up with Dr. Gasca Enterococcus bacteremia. Rule out gastrointestinal (GI) malignancy. Will need a colonoscopy after infection is treated Chronic obstructive pulmonary disease (COPD). Not in exacerbation. Continue Advair Demand mediated ischemia, resolved. Hypertension. Continue lisinopril Dyslipidemia. Continue statin Gastroesophageal reflux disease (GERD). DISCHARGE MEDICATIONS: Please see below. ALLERGIES: Please see below. PHYSICAL EXAMINATION ON DISCHARGE: VITAL SIGNS: Please see below. General Exam: Positive: Alert, Cooperative, No Acute Distress Eye Exam: Positive: EOMI; Negative: Sclera icteric ENT Exam: Positive: Atraumatic Neck Exam: Positive: Supple; Negative: JVD, thyromegaly Chest Exam: Positive: Diminished, Other (Coarse crackles at the right base and infraaxillary region) Heart Exam: Positive: Rate Normal, Regular Rhythm, Murmurs (Soft systolic murmur) Abdomen Exam: Positive: Normal bowel sounds, Soft; Negative: Tenderness Extremity Exam: Negative: Edema Neuro Exam: Positive: Normal Speech Psych Exam: Positive: Mental status NL, Mood NL, Memory Intact, Oriented x 3 LABORATORY DATA: Please see below. ACTIVITY: [As tolerated]. DIET: As tolerated DISPOSITION: 06 Home Health Service. DISCHARGE INSTRUCTIONS: Dr Pedersen in [address] Borrego/ [facility] in 1 week to schedule for Transesophageal echo PMD in 1 week ITEMS TO FOLLOWUP ON ON OUTPATIENT: Needs Transesophageal echo DISCHARGE CONDITION: [Stable]. TIME SPENT ON DISCHARGE: 35 minutes. Vital Signs/I&Os Vital Signs Date Time Temp Pulse Resp B/P (MAP) Pulse Ox O2 Delivery O2 Flow Rate FiO2 04/02/21 09:21 132/80 04/02/21 05:41 97.0 50 18 96 Room Air 03/31/21 09:00 1.0 Microbiology Microbiology 03/31/21 Blood Culture - Final, Complete NO GROWTH AFTER 5 DAYS 03/31/21 Blood Culture - Final, Complete NO GROWTH AFTER 5 DAYS 03/30/21 Blood Culture - Final, Complete NO GROWTH AFTER 5 DAYS 03/30/21 Blood Culture - Final, Complete NO GROWTH AFTER 5 DAYS 03/27/21 Blood Culture - Final, Complete Enterococcus Faecalis 03/27/21 Blood Culture - Final, Complete Enterococcus Faecalis Discharge Medications Scheduled Aspirin (Aspirin EC) 325 Mg Tablet.dr, 325 MG PO DAILY, (Reported) Atorvastatin Calcium (Atorvastatin Calcium) 80 Mg Tablet, 80 MG PO DAILY, (Reported) Bacillus Coagulans (Bacid with Lactospore) 1 Each Capsule, 1 CAP PO [facility] Lisinopril (Lisinopril) 20 Mg Tab, 20 MG PO DAILY, (Reported) Omeprazole (Omeprazole) 40 Mg Capsule.dr, 40 MG PO DAILY, (Reported) Salmeterol/Fluticasone (Advair 250-50 Diskus) 1 Each Blst.w.dev, 1 PUFF INH BID, (Reported) Scheduled PRN Albuterol Sulfate (Proair Hfa) 8.5 Gm Hfa.aer.ad, 2 PUFFS INH QID PRN for SOB/WHEEZING, (Reported) Allergies Coded Allergies: No Known Allergies (Unverified , 06/10/17) Anahy Arams MD Apr 05, 2021 21:02
== END 2021-04-02 12:05 | disposition home health service (06) | DRG 177 ==
LOC: M ED 03:15 → M ED INP 07:55 → ENRESERV 09:45 → M 4MAIN 11:16
PROVIDERS: ADMIT Internal Medicine; ATTEND Internal Medicine Nephrology
PROC: 02HV33Z Insertion of Infusion Device into Superior Vena Cava, Percutaneous Approach (ICD-10-PCS; principal; 2021-04-01 13:30)
DX: U07.1 COVID-19 (principal); J12.82 Pneumonia due to coronavirus disease 2019; J96.01 Acute respiratory failure with hypoxia; T82.6XXA Infection and inflammatory reaction due to cardiac valve prosthesis, initial encounter; R78.81 Bacteremia; I24.8 Other forms of acute ischemic heart disease; J44.9 Chronic obstructive pulmonary disease, unspecified; Z79.82 Long term (current) use of aspirin; Z79.899 Other long term (current) drug therapy; I11.0 Hypertensive heart disease with heart failure; E78.5 Hyperlipidemia, unspecified; Z95.2 Presence of prosthetic heart valve; Z87.891 Personal history of nicotine dependence; K21.9 Gastro-esophageal reflux disease without esophagitis; I35.0 Nonrheumatic aortic (valve) stenosis; B97.19 Other enterovirus as the cause of diseases classified elsewhere; I50.9 Heart failure, unspecified

== ENCOUNTER → 2021-04-07 | Outpatient (REF) | payer OTHER ==
[~2021-04-07] MED LIST changes: +ADV250INH INH; +ASPI32ECTA PO; +ATOR80TA59 PO; +BACI1CAP PO; +CEFD300CAP PO; +DOXY-350 PO; +LEVO750T13 PO; +PRED10TA2 PO
[2021-04-07 18:13] LABS: BASO # 0.1 10^3/uL (0.0-0.2); BASO % 0.6 % (0.0-1.0); EOS # 0.5 10^3/uL (0.0-0.5); EOS % 5.8 % (0.0-3.0); HEMATOCRIT 38.5 % (42.0-52.0); HEMOGLOBIN 11.3 g/dl (13.5-17.5); LYMPH # 0.7 10^3/uL (1.5-5.0); LYMPH % 8.1 % (24.0-44.0); MEAN CORPUSCULAR HGB CONC 29.4 g/dl (32.0-36.5); MEAN CORPUSCULAR VOLUME 88.5 fl (80.0-96.0); MONO # 0.6 10^3/uL (0.0-0.8); MONO % 6.9 % (2.0-8.0); NEUTROPHILS # 6.5 10^3/uL (1.5-8.5); NEUTROPHILS % 78.4 % (36.0-66.0); PLATELET COUNT, AUTOMATED 166 10^3/uL (150-450); RED BLOOD COUNT 4.35 10^6/uL (4.30-6.10); WHITE BLOOD COUNT 8.3 10^3/uL (4.0-10.0)
[2021-04-07 18:39] LABS: ALBUMIN 2.2 GM/DL (3.2-5.2); ALT/SGPT 18 U/L (12-78); BILIRUBIN,TOTAL 0.3 MG/DL (0.2-1.0); BLOOD UREA NITROGEN 12 MG/DL (7-18); C REACTIVE PROTEIN QUANTITATIV 2.34 MG/DL (0.00-0.30); CALCIUM LEVEL 7.3 MG/DL (8.8-10.2); CARBON DIOXIDE LEVEL 30 MEQ/L (21-32); CHLORIDE LEVEL 103 MEQ/L (98-107); CREATININE FOR GFR 0.75 MG/DL (0.70-1.30); GLOMERULAR FILTRATION RATE > 60.0 (>42); GLUCOSE, FASTING 126 MG/DL (70-100); POTASSIUM SERUM 3.9 MEQ/L (3.5-5.1); SODIUM LEVEL 139 MEQ/L (136-145); TOTAL PROTEIN 5.9 GM/DL (6.4-8.2)
[2021-04-07 19:16] LABS: ERYTHROCYTE SEDIMENTATION RATE 16 mm/hr (0-20)
== END ==
LOC: M SHH 17:19
PROVIDERS: ATTEND Internal Medicine Infectious Disease
DX: I33.0 Acute and subacute infective endocarditis (principal); B95.2 Enterococcus as the cause of diseases classified elsewhere

== ENCOUNTER → 2021-04-14 | Outpatient (REF) | payer OTHER ==
[2021-04-14 14:55] LABS: BASO % 0.6 % (0.0-1.0); EOS # 0.2 10^3/uL (0.0-0.5); EOS % 3.3 % (0.0-3.0); HEMOGLOBIN 11.8 g/dl (13.5-17.5); LYMPH # 0.7 10^3/uL (1.5-5.0); LYMPH % 11.1 % (24.0-44.0); MEAN CORPUSCULAR HEMOGLOBIN 26.6 pg (27.0-33.0); MEAN CORPUSCULAR HGB CONC 31.1 g/dl (32.0-36.5); MEAN CORPUSCULAR VOLUME 85.6 fl (80.0-96.0); MONO # 0.6 10^3/uL (0.0-0.8); MONO % 8.8 % (2.0-8.0); NEUTROPHILS # 4.9 10^3/uL (1.5-8.5); NEUTROPHILS % 75.9 % (36.0-66.0); PLATELET COUNT, AUTOMATED 148 10^3/uL (150-450); RED BLOOD COUNT 4.44 10^6/uL (4.30-6.10); WHITE BLOOD COUNT 6.4 10^3/uL (4.0-10.0)
[2021-04-14 15:30] LABS: ALBUMIN 2.5 GM/DL (3.2-5.2); ALT/SGPT 14 U/L (12-78); BILIRUBIN,TOTAL 0.4 MG/DL (0.2-1.0); BLOOD UREA NITROGEN 13 MG/DL (7-18); C REACTIVE PROTEIN QUANTITATIV 4.01 MG/DL (0.00-0.30); CALCIUM LEVEL 7.9 MG/DL (8.8-10.2); CARBON DIOXIDE LEVEL 29 MEQ/L (21-32); CHLORIDE LEVEL 105 MEQ/L (98-107); CREATININE FOR GFR 0.68 MG/DL (0.70-1.30); GLOMERULAR FILTRATION RATE > 60.0 (>42); GLUCOSE, FASTING 67 MG/DL (70-100); POTASSIUM SERUM 3.9 MEQ/L (3.5-5.1); SODIUM LEVEL 140 MEQ/L (136-145); TOTAL PROTEIN 6.3 GM/DL (6.4-8.2)
[2021-04-14 15:32] LABS: ERYTHROCYTE SEDIMENTATION RATE 45 mm/hr (0-20)
== END ==
LOC: M SHH 14:41
PROVIDERS: ATTEND Internal Medicine Infectious Disease
DX: I33.0 Acute and subacute infective endocarditis (principal); B95.2 Enterococcus as the cause of diseases classified elsewhere

== ENCOUNTER → 2021-04-18 | Outpatient (CLI) | payer OTHER ==
--- NOTE | 2021-04-20 08:03 | REP ---
INDICATION: PNEUMONIA DUE TO COVID COMPARISON: 03/24/2021 TECHNIQUE: PA and lateral. FINDINGS: Right lower lobe pleuroparenchymal changes suggesting acute on chronic infectious/inflammatory process and associated pleural fluid again noted and similar to prior examination. The mediastinum and cardiac silhouette are stable. No cardiomegaly. The remainder lung du demonstrate diffuse stable chronic interstitial changes. Right-sided PICC line extends into the SVC. IMPRESSION: Right lower lobe opacity suggesting acute pneumonia and associated pleural fluid. Findings are similar to prior examination. Follow-up to resolution is recommended. Consider chest CT if the patient remains symptomatic. <Electronically signed by Keyon Colon > 04/20/21 [id number]
== END ==
LOC: M WUC 11:13
PROVIDERS: ATTEND Internal Medicine Infectious Disease
DX: U07.1 COVID-19 (principal); J12.82 Pneumonia due to coronavirus disease 2019

== ENCOUNTER → 2021-04-21 | Outpatient (REF) | payer OTHER ==
[2021-04-21 16:03] LABS: BASO % 0.7 % (0.0-1.0); EOS # 0.6 10^3/uL (0.0-0.5); EOS % 10.6 % (0.0-3.0); HEMATOCRIT 36.3 % (42.0-52.0); HEMOGLOBIN 10.8 g/dl (13.5-17.5); LYMPH # 0.8 10^3/uL (1.5-5.0); LYMPH % 12.9 % (24.0-44.0); MEAN CORPUSCULAR HEMOGLOBIN 26.1 pg (27.0-33.0); MEAN CORPUSCULAR HGB CONC 29.8 g/dl (32.0-36.5); MEAN CORPUSCULAR VOLUME 87.7 fl (80.0-96.0); MONO # 0.7 10^3/uL (0.0-0.8); MONO % 11.2 % (2.0-8.0); NEUTROPHILS # 3.8 10^3/uL (1.5-8.5); NEUTROPHILS % 64.3 % (36.0-66.0); PLATELET COUNT, AUTOMATED 199 10^3/uL (150-450); RED BLOOD COUNT 4.14 10^6/uL (4.30-6.10)
[2021-04-21 16:59] LABS: ERYTHROCYTE SEDIMENTATION RATE 27 mm/hr (0-20)
[2021-04-21 17:47] LABS: ALBUMIN 2.1 GM/DL (3.2-5.2); ALT/SGPT 10 U/L (12-78); BILIRUBIN,TOTAL 0.2 MG/DL (0.2-1.0); BLOOD UREA NITROGEN 9 MG/DL (7-18); C REACTIVE PROTEIN QUANTITATIV 2.11 MG/DL (0.00-0.30); CALCIUM LEVEL 7.3 MG/DL (8.8-10.2); CARBON DIOXIDE LEVEL 27 MEQ/L (21-32); CHLORIDE LEVEL 111 MEQ/L (98-107); CREATININE FOR GFR 0.55 MG/DL (0.70-1.30); GLOMERULAR FILTRATION RATE > 60.0 (>42); GLUCOSE, FASTING 68 MG/DL (70-100); POTASSIUM SERUM 3.5 MEQ/L (3.5-5.1); SODIUM LEVEL 144 MEQ/L (136-145); TOTAL PROTEIN 5.6 GM/DL (6.4-8.2)
== END ==
LOC: M SHH 15:28
PROVIDERS: ATTEND Internal Medicine Infectious Disease
DX: I33.0 Acute and subacute infective endocarditis (principal); B95.2 Enterococcus as the cause of diseases classified elsewhere

== ENCOUNTER 2021-04-25 11:31 | Day surgery (SDC) | payer OTHER ==
[~2021-04-25] VITALS: Ht 172.7 cm; Wt 65.8 kg
[2021-04-25] MEDS ORDERED: CETACAINE SPRAY 5GM As Ordered ONE (11:49)
[2021-04-25] MEDS ORDERED: LIDOCAINE VISCOUS 2% SOLN 15ML UDC As Ordered ONE (11:49)
[2021-04-25] MEDS ORDERED: LIDOCAINE 2% 100MG/5ML SDV (FOR ANES.) As Ordered ONE (12:34)
[2021-04-25] MEDS ORDERED: fentaNYL 100 MCG/2 ML INJECTION (J3010) As Ordered ONE (12:34)
[2021-04-25] MEDS ORDERED: propofoL 500 MG/50 ML VIAL As Ordered ONE (12:34)
[2021-04-25] MEDS ORDERED: MIDAZOLAM INJ 2MG/2ML VIAL (J2250 PER 1MG) As Ordered ONE (12:34)
[2021-04-25] MEDS ORDERED: ONDANSETRON 4MG/2ML VIAL As Ordered ONE (12:34)
--- NOTE | 2021-04-25 15:12 | T-ECHO ---
TRANSESOPHAGEAL ECHO DATE: 04/25/2021 REFERRING PROVIDER: Bernarda Valdez PA-C PREPROCEDURE DIAGNOSIS: Streptococcus faecalis bacteremia. POSTPROCEDURE DIAGNOSIS: Streptococcus faecalis bacteremia. FINDINGS: Streptococcus faecalis bacteremia. No vegetations. PROCEDURE PERFORMED: Transesophageal echocardiogram. PROCEDURE PERFORMED BY: Hernandez Gasca M.D. FLOOR TILING PROFESSIONAL: None. INTRAVENOUS SEDATION: Monitored anesthesia care administered by MARKING MACHINE TENDER. COMPLICATIONS: None. PROCEDURE DESCRIPTION: Patient received topical Cetacaine to the back of the pharynx. After receiving IV sedation as administered by the MARKING MACHINE TENDER, esophageal intubation with a 3D transesophageal echocardiogram probe was performed by Dr. Gasca without difficulty. Rhythm was sinus. The left ventricle appeared to be normal in size and systolic function. LVEF 65% by visual assessment. Right ventricle appeared normal in size and systolic function. Atrial septum was intact anatomically and by color flow Doppler. Pulse wave Doppler of the left upper pulmonary vein was normal. No masses or thrombi were seen within the cardiac chambers or on any of the cardiac valves. A bioprosthesis was well seated in the aortic position. Very mild aortic valve regurgitation was present, probably valvular. Mild thickening of the aortic cusp bioprosthesis leaflets. No reduced mobility of the aortic cusp leaflets. No vegetations were seen on the aortic valve bioprosthesis or any of the other cardiac valves. The mitral leaflets appeared structurally and functionally normal. Very mild mitral regurgitation was present and within physiologic limits. Pulmonic valve and tricuspid valves appeared structurally and functionally normal. No pericardial effusion. Distal aortic arch and descending thoracic aorta showed mild atherosclerotic plaque. CONCLUSIONS: 1. No vegetations. 2. Abnormal aortic valve bioprosthesis with mild thickening of the cusps. Very mild aortic regurgitation (probably valvular). No aortic stenosis by visual assessment. 3. Normal left ventricle size and systolic function. LVEF 65% by visual estimate. 4. Mild atherosclerotic plaque seen in the distal aortic arch and descending thoracic aorta. Ibeth Pedersen M.D. Hernandez Gasca M.D.
[2021-04-25 15:25] VITALS: BP 169/96
[2021-04-25] MEDS ORDERED: ONDANSETRON 4MG/2ML VIAL IV PRN (15:55)
[2021-04-25] MEDS ORDERED: LR 1,000 ML IV SCH (15:55)
[2021-04-25] MEDS ORDERED: MEPERIDINE INJ 25 MG/ML VIAL (J2175) IV PRN (15:55)
[2021-04-25] MEDS ORDERED: fentaNYL 100 MCG/2 ML INJECTION (J3010) IV PRN (15:55)
== END 2021-04-25 15:35 | disposition home or self-care (01) ==
LOC: M SDC 11:31
PROVIDERS: ATTEND Internal Medicine Cardiovascular Disease
DX: R78.81 Bacteremia (principal); I25.10 Atherosclerotic heart disease of native coronary artery without angina pectoris; Z95.1 Presence of aortocoronary bypass graft; I10 Essential (primary) hypertension; R94.31 Abnormal electrocardiogram [ECG] [EKG]; J44.9 Chronic obstructive pulmonary disease, unspecified; Z86.16 Personal history of COVID-19; Z79.51 Long term (current) use of inhaled steroids; Z79.82 Long term (current) use of aspirin; Z79.899 Other long term (current) drug therapy; Z87.891 Personal history of nicotine dependence
CPT/HCPCS: 93312; 93320; 93325; J2250; J2405; J3010

== ENCOUNTER → 2021-04-28 | Outpatient (REF) | payer OTHER ==
[2021-04-28 18:10] LABS: BASO % 0.6 % (0.0-1.0); EOS # 0.2 10^3/uL (0.0-0.5); EOS % 4.2 % (0.0-3.0); HEMOGLOBIN 11.7 g/dl (13.5-17.5); LYMPH # 0.6 10^3/uL (1.5-5.0); LYMPH % 10.1 % (24.0-44.0); MEAN CORPUSCULAR HEMOGLOBIN 26.1 pg (27.0-33.0); MEAN CORPUSCULAR VOLUME 86.9 fl (80.0-96.0); MONO # 0.7 10^3/uL (0.0-0.8); MONO % 12.3 % (2.0-8.0); NEUTROPHILS % 72.4 % (36.0-66.0); PLATELET COUNT, AUTOMATED 160 10^3/uL (150-450); RED BLOOD COUNT 4.49 10^6/uL (4.30-6.10); WHITE BLOOD COUNT 5.5 10^3/uL (4.0-10.0)
[2021-04-28 18:46] LABS: ALBUMIN 2.6 GM/DL (3.2-5.2); ALT/SGPT 12 U/L (12-78); BILIRUBIN,TOTAL 0.3 MG/DL (0.2-1.0); BLOOD UREA NITROGEN 10 MG/DL (7-18); C REACTIVE PROTEIN QUANTITATIV 2.68 MG/DL (0.00-0.30); CALCIUM LEVEL 8.4 MG/DL (8.8-10.2); CARBON DIOXIDE LEVEL 29 MEQ/L (21-32); CHLORIDE LEVEL 106 MEQ/L (98-107); CREATININE FOR GFR 0.65 MG/DL (0.70-1.30); GLOMERULAR FILTRATION RATE > 60.0 (>42); GLUCOSE, FASTING 107 MG/DL (70-100); POTASSIUM SERUM 3.7 MEQ/L (3.5-5.1); SODIUM LEVEL 141 MEQ/L (136-145); TOTAL PROTEIN 6.1 GM/DL (6.4-8.2)
[2021-04-28 19:28] LABS: ERYTHROCYTE SEDIMENTATION RATE 20 mm/hr (0-20)
== END ==
LOC: M LAB REF 15:44
PROVIDERS: ATTEND Internal Medicine Infectious Disease
DX: I33.0 Acute and subacute infective endocarditis (principal); B95.2 Enterococcus as the cause of diseases classified elsewhere

== ENCOUNTER → 2021-05-05 | Outpatient (REF) | payer OTHER ==
[2021-05-05 13:56] LABS: BASO % 0.5 % (0.0-1.0); EOS # 0.4 10^3/uL (0.0-0.5); EOS % 6.8 % (0.0-3.0); HEMATOCRIT 40.2 % (42.0-52.0); HEMOGLOBIN 12.3 g/dl (13.5-17.5); LYMPH # 0.7 10^3/uL (1.5-5.0); LYMPH % 12.8 % (24.0-44.0); MEAN CORPUSCULAR HEMOGLOBIN 26.2 pg (27.0-33.0); MEAN CORPUSCULAR HGB CONC 30.6 g/dl (32.0-36.5); MEAN CORPUSCULAR VOLUME 85.5 fl (80.0-96.0); MONO # 0.7 10^3/uL (0.0-0.8); MONO % 11.9 % (2.0-8.0); NEUTROPHILS # 3.7 10^3/uL (1.5-8.5); NEUTROPHILS % 67.5 % (36.0-66.0); PLATELET COUNT, AUTOMATED 157 10^3/uL (150-450); WHITE BLOOD COUNT 5.5 10^3/uL (4.0-10.0)
[2021-05-05 14:26] LABS: ALBUMIN 2.7 GM/DL (3.2-5.2); ALT/SGPT 15 U/L (12-78); BILIRUBIN,TOTAL 0.3 MG/DL (0.2-1.0); BLOOD UREA NITROGEN 11 MG/DL (7-18); C REACTIVE PROTEIN QUANTITATIV 1.79 MG/DL (0.00-0.30); CALCIUM LEVEL 8.6 MG/DL (8.8-10.2); CARBON DIOXIDE LEVEL 28 MEQ/L (21-32); CHLORIDE LEVEL 105 MEQ/L (98-107); CREATININE FOR GFR 0.68 MG/DL (0.70-1.30); GLOMERULAR FILTRATION RATE > 60.0 (>42); GLUCOSE, FASTING 121 MG/DL (70-100); POTASSIUM SERUM 3.6 MEQ/L (3.5-5.1); SODIUM LEVEL 140 MEQ/L (136-145); TOTAL PROTEIN 6.4 GM/DL (6.4-8.2)
[2021-05-05 14:33] LABS: ERYTHROCYTE SEDIMENTATION RATE 22 mm/hr (0-20)
== END ==
LOC: M SHH 12:53
PROVIDERS: ATTEND Internal Medicine Infectious Disease
DX: I33.0 Acute and subacute infective endocarditis (principal); B95.2 Enterococcus as the cause of diseases classified elsewhere

== ENCOUNTER → 2021-05-14 | Outpatient (CLI) | payer OTHER ==
[~2021-05-14] MED LIST changes: +CHLO125TA; +NITR0.4S14; -OMEP-221 PO; +OMEP40CA5 PO
== END ==
LOC: M PLAIMG 12:23
PROVIDERS: ATTEND Internal Medicine Infectious Disease
DX: R59.0 Localized enlarged lymph nodes (principal); R93.89 Abnormal findings on diagnostic imaging of other specified body structures; Z95.2 Presence of prosthetic heart valve; I33.0 Acute and subacute infective endocarditis

== ENCOUNTER → 2021-05-14 | Outpatient (CLI) | payer OTHER ==
[2021-05-14 11:01] LABS: BASO % 0.7 % (0.0-1.0); EOS # 0.3 10^3/uL (0.0-0.5); EOS % 4.3 % (0.0-3.0); HEMATOCRIT 47.2 % (42.0-52.0); HEMOGLOBIN 14.4 g/dl (13.5-17.5); LYMPH % 17.2 % (24.0-44.0); MEAN CORPUSCULAR HEMOGLOBIN 25.9 pg (27.0-33.0); MEAN CORPUSCULAR HGB CONC 30.5 g/dl (32.0-36.5); MONO # 0.6 10^3/uL (0.0-0.8); MONO % 10.8 % (2.0-8.0); NEUTROPHILS # 3.9 10^3/uL (1.5-8.5); NEUTROPHILS % 66.5 % (36.0-66.0); PLATELET COUNT, AUTOMATED 196 10^3/uL (150-450); RED BLOOD COUNT 5.55 10^6/uL (4.30-6.10); WHITE BLOOD COUNT 5.8 10^3/uL (4.0-10.0)
[2021-05-14 11:26] LABS: ERYTHROCYTE SEDIMENTATION RATE 2 mm/hr (0-20)
== END ==
LOC: M WUC 09:00
PROVIDERS: ATTEND Internal Medicine Infectious Disease
DX: I33.0 Acute and subacute infective endocarditis (principal)

== ENCOUNTER → 2021-05-29 | Outpatient (CLI) | payer OTHER ==
[~2021-05-29] MED LIST changes: +OMEP-221 PO; -OMEP40CA5 PO
[2021-05-29 10:36] LABS: HEMATOCRIT 43.1 % (42.0-52.0); HEMOGLOBIN 13.2 g/dl (13.5-17.5); MEAN CORPUSCULAR HGB CONC 30.6 g/dl (32.0-36.5); MEAN CORPUSCULAR VOLUME 84.8 fl (80.0-96.0); PLATELET COUNT, AUTOMATED 133 10^3/uL (150-450); RED BLOOD COUNT 5.08 10^6/uL (4.30-6.10); WHITE BLOOD COUNT 5.6 10^3/uL (4.0-10.0)
[2021-05-29 11:08] LABS: ALBUMIN 3.1 GM/DL (3.2-5.2); ALT/SGPT 256 U/L (12-78); BILIRUBIN,TOTAL 0.5 MG/DL (0.2-1.0); BLOOD UREA NITROGEN 19 MG/DL (7-18); CALCIUM LEVEL 8.7 MG/DL (8.8-10.2); CARBON DIOXIDE LEVEL 31 MEQ/L (21-32); CHLORIDE LEVEL 107 MEQ/L (98-107); CHOLESTEROL LEVEL 125 MG/DL (<200); CHOLESTEROL RISK RATIO 2.314 (<5); CREATININE FOR GFR 0.99 MG/DL (0.70-1.30); GLOMERULAR FILTRATION RATE > 60.0 (>42); GLUCOSE, FASTING 125 MG/DL (70-100); HDL CHOLESTEROL 54 MG/DL (>40); LDL CHOLESTEROL 54 MG/DL (<100); NON-HDL-C 71 MG/DL; POTASSIUM SERUM 4.3 MEQ/L (3.5-5.1); SODIUM LEVEL 142 MEQ/L (136-145); TOTAL PROTEIN 6.5 GM/DL (6.4-8.2); TRIGLYCERIDES LEVEL 83 MG/DL (<150)
== END ==
LOC: M WUC 08:41
PROVIDERS: ATTEND Physician Assistant
DX: I25.10 Atherosclerotic heart disease of native coronary artery without angina pectoris (principal); E78.00 Pure hypercholesterolemia, unspecified

== ENCOUNTER → 2021-06-02 | Outpatient (CLI) | payer OTHER ==
[2021-06-02 09:57] LABS: PLATELET COUNT, AUTOMATED 133 10^3/uL (150-450)
[2021-06-02 10:08] LABS: INR 1.12; PARTIAL THROMBOPLASTIN TIME 36.2 SECONDS (25.9-37.0); PROTHROMBIN TIME 14.9 SECONDS (12.7-14.5)
== END ==
LOC: M WUC 08:34
PROVIDERS: ATTEND Internal Medicine Pulmonary Disease
DX: Z01.812 Encounter for preprocedural laboratory examination (principal); Z79.01 Long term (current) use of anticoagulants

== ENCOUNTER → 2021-06-25 | Outpatient (CLI) | payer OTHER ==
--- NOTE | 2021-06-25 10:13 | REP ---
INDICATION: ABNORMAL LIVER ENZYMES-CT APPT FIRST COMPARISON: None. TECHNIQUE: Real time nieves scale ultrasound examination using curved array transducer. FINDINGS: Liver is normal in contour, size, and echogenicity without focal hepatic lesions identified. Pancreas is incompletely evaluated due to interposed bowel gas. The gallbladder is without gallstones, wall thickening, or pericholecystic fluid. Two small 2 mm benign gallbladder polyps suspected. No biliary ductal dilatation is appreciated and the common bile duct measures 6.1 mm diameter. Right kidney is normal in reniform shape without hydronephrosis and measures 11.2 x 5.6 x 4.5 cm. 2.6 cm midpole cyst noted along with renovascular calcifications. No ascites in the visualized right upper quadrant. IMPRESSION: 1. Small benign gallbladder polyps. 2. Right renal cyst and suspected renovascular calcifications (less likely representing tiny nonobstructing nephroliths). <Electronically signed by Keyon Colon > 06/25/21 [id number]
== END ==
LOC: M RAD 08:56
PROVIDERS: ATTEND Nurse Practitioner Family
DX: K82.4 Cholesterolosis of gallbladder (principal); N28.1 Cyst of kidney, acquired; R94.5 Abnormal results of liver function studies

== ENCOUNTER → 2021-06-25 | Outpatient (CLI) | payer OTHER ==
--- NOTE | 2021-06-25 10:21 | REP ---
INDICATION: ABNORMAL FINDINGS ON LUNG FIELD-US APPT AFTER COMPARISON: 05/14/2021 TECHNIQUE: Axial noncontrast images from the thoracic inlet to the upper abdomen with coronal and sagittal reformations. This CT examination was performed using the following dose reduction techniques: Automated exposure control, adjustment of mA and/or kv according to the patient's size, and use of iterative reconstruction technique. FINDINGS: A spiculated mass in the right apex measures approximately 13 mm and may be slightly increased from prior examination. Ill-defined areas of consolidation/airspace disease in the right lower lobe with small pleural effusion and chronic pleural thickening along with similar smaller area of consolidation in the left lower lobe are mildly improved from prior examination. No new acute areas of consolidation or opacity are identified. Underlying advanced chronic COPD/emphysematous changes with bronchiectasis and scarring again noted and unchanged. The mediastinum demonstrates continued mediastinal and presumed right hilar adenopathy with precarinal lymph node measuring up to approximately 19 mm. Further evaluation demonstrates stable atherosclerotic changes to the thoracic aorta and coronary arteries, cardiomegaly, evidence for prior sternotomy/CABG and degenerative changes to the musculoskeletal structures. IMPRESSION: 1. Spiculated mass in the right apex might be slightly enlarged as compared with prior examination and is again concerning for neoplasm. PET-CT was and still is recommended. 2. Ill-defined pleuroparenchymal changes in the bilateral bases (right greater than left) appears slightly improved. Adenopathy again noted and unchanged. <Electronically signed by Keyon Colon > 06/25/21 [id number]
== END ==
LOC: M PLAIMG 08:59
PROVIDERS: ATTEND Internal Medicine Pulmonary Disease
DX: R91.1 Solitary pulmonary nodule (principal); J94.9 Pleural condition, unspecified

== ENCOUNTER → 2021-08-06 | Outpatient (CLI) | payer OTHER ==
[~2021-08-06] MED LIST changes: -OMEP-221 PO; +OMEP40CA5 PO
[2021-08-06 10:09] LABS: BLOOD UREA NITROGEN 28 MG/DL (7-18); CALCIUM LEVEL 8.7 MG/DL (8.8-10.2); CARBON DIOXIDE LEVEL 31 MEQ/L (21-32); CHLORIDE LEVEL 105 MEQ/L (98-107); CREATININE FOR GFR 0.98 MG/DL (0.70-1.30); GLOMERULAR FILTRATION RATE > 60.0 (>42); GLUCOSE, FASTING 84 MG/DL (70-100); POTASSIUM SERUM 4.7 MEQ/L (3.5-5.1); SODIUM LEVEL 141 MEQ/L (136-145)
== END ==
LOC: M WUC 08:16
PROVIDERS: ATTEND Physician Assistant
DX: I10 Essential (primary) hypertension (principal)

== ENCOUNTER → 2022-01-08 | Outpatient (CLI) | payer OTHER ==
[2022-01-08 12:59] LABS: CALCIUM LEVEL 8.7 MG/DL (8.8-10.2); CREATININE FOR GFR 1.27 MG/DL (0.70-1.30); GLOMERULAR FILTRATION RATE 58.7 (>42); POTASSIUM SERUM 4.5 MEQ/L (3.5-5.1)
== END ==
LOC: M WUC 10:14
PROVIDERS: ATTEND Physician Assistant
DX: I10 Essential (primary) hypertension (principal)

== ENCOUNTER → 2022-03-17 | Outpatient (CLI) | payer OTHER ==
[~2022-03-17] MED LIST changes: +LEVO1TAB40 PO; -LEVO750T13 PO
[2022-03-17 12:31] LABS: BASO % 0.6 % (0.0-1.0); EOS # 0.1 10^3/uL (0.0-0.5); EOS % 1.9 % (0.0-3.0); HEMATOCRIT 44.4 % (42.0-52.0); LYMPH # 0.9 10^3/uL (1.5-5.0); LYMPH % 16.6 % (24.0-44.0); MEAN CORPUSCULAR HEMOGLOBIN 28.7 pg (27.0-33.0); MEAN CORPUSCULAR HGB CONC 31.5 g/dl (32.0-36.5); MONO # 0.5 10^3/uL (0.0-0.8); MONO % 9.9 % (2.0-8.0); NEUTROPHILS # 3.8 10^3/uL (1.5-8.5); NEUTROPHILS % 70.4 % (36.0-66.0); PLATELET COUNT, AUTOMATED 129 10^3/uL (150-450); RED BLOOD COUNT 4.88 10^6/uL (4.30-6.10); WHITE BLOOD COUNT 5.4 10^3/uL (4.0-10.0)
[2022-03-17 13:04] LABS: ALBUMIN 3.5 GM/DL (3.2-5.2); ALT/SGPT 19 U/L (12-78); BILIRUBIN,TOTAL 0.6 MG/DL (0.2-1.0); BLOOD UREA NITROGEN 24 MG/DL (7-18); CALCIUM LEVEL 8.4 MG/DL (8.8-10.2); CARBON DIOXIDE LEVEL 30 MEQ/L (21-32); CHLORIDE LEVEL 105 MEQ/L (98-107); CREATININE FOR GFR 1.14 MG/DL (0.70-1.30); ERYTHROCYTE SEDIMENTATION RATE 9 mm/hr (0-20); FERRITIN 28 NG/ML (26-388); GLOMERULAR FILTRATION RATE > 60.0 (>42); GLUCOSE, FASTING 101 MG/DL (70-100); POTASSIUM SERUM 3.9 MEQ/L (3.5-5.1); SODIUM LEVEL 138 MEQ/L (136-145); TOTAL PROTEIN 6.3 GM/DL (6.4-8.2)
[2022-03-17 13:54] LABS: HEPATITIS B SURFACE ANTIGEN NEGATIVE (NEGATIVE)
[2022-03-17 14:22] LABS: HEPATITIS B CORE ANTIBODY IGM NEGATIVE (NEGATIVE); HEPATITIS C VIRUS ABY INDEX < 0.0 INDEX (<0.8)
[2022-03-17 14:23] LABS: HIV 1&2 SCREEN CENTAUR NEGATIVE (NEGATIVE)
[2022-03-18 21:08] LABS: ANA (HEP2) Negative (.); ANTI-MITOCHONDRIAL ANTIBODY <20.0 Units (0.0-20.0)
== END ==
LOC: M WUC 09:15
PROVIDERS: ATTEND Physician Assistant
DX: R74.8 Abnormal levels of other serum enzymes (principal)

== ENCOUNTER → 2022-03-17 | Outpatient (CLI) | payer OTHER | LOC: M RAD 10:09 | PROVIDERS: ATTEND Physician Assistant | DX: I65.23 Occlusion and stenosis of bilateral carotid arteries (principal) ==

== ENCOUNTER → 2022-07-01 | Outpatient (CLI) | payer OTHER ==
[~2022-07-01] MED LIST changes: -DOXY-350 PO; +DOXY-444 PO
[2022-07-01 12:33] LABS: HEMATOCRIT 48.2 % (42.0-52.0); HEMOGLOBIN 14.8 g/dl (13.5-17.5); MEAN CORPUSCULAR HEMOGLOBIN 27.9 pg (27.0-33.0); MEAN CORPUSCULAR HGB CONC 30.7 g/dl (32.0-36.5); MEAN CORPUSCULAR VOLUME 90.9 fl (80.0-96.0); PLATELET COUNT, AUTOMATED 142 10^3/uL (150-450); WHITE BLOOD COUNT 6.5 10^3/uL (4.0-10.0)
[2022-07-01 12:55] LABS: ALBUMIN 3.7 G/DL (3.2-5.2); ALKALINE PHOSPHATASE 86 U/L (46-116); ALT/SGPT 14 U/L (7.0-40); AST/SGOT 21 U/L (<34); BILIRUBIN,TOTAL 0.5 MG/DL (0.3-1.2); BLOOD UREA NITROGEN 27 MG/DL (9-23); CALCIUM LEVEL 8.9 MG/DL (8.3-10.6); CARBON DIOXIDE LEVEL 26 MMOL/L (20-31); CHLORIDE LEVEL 102 MMOL/L (98-107); CHOLESTEROL LEVEL 116 MG/DL (<200); CHOLESTEROL RISK RATIO 2.33 (<5); CREATININE FOR GFR 1.03 MG/DL (0.70-1.30); GLOMERULAR FILTRATION RATE > 60.0 (>42); GLUCOSE, FASTING 106 MG/DL (74-106); HDL CHOLESTEROL 49.6 MG/DL (>40); LDL CHOLESTEROL 43.4 MG/DL (<100); NON-HDL-C 66 MG/DL; POTASSIUM SERUM 4.3 MMOL/L (3.5-5.1); SODIUM LEVEL 140 MMOL/L (136-145); TOTAL PROTEIN 6.5 G/DL (5.7-8.2); TRIGLYCERIDES LEVEL 115 MG/DL (<150)
== END ==
LOC: M WUC 09:38
PROVIDERS: ATTEND Physician Assistant
DX: I25.10 Atherosclerotic heart disease of native coronary artery without angina pectoris (principal); I10 Essential (primary) hypertension; E78.00 Pure hypercholesterolemia, unspecified

== ENCOUNTER → 2023-01-04 | Outpatient (CLI) | payer OTHER ==
[2023-01-04 19:21] LABS: CALCIUM LEVEL 9.8 MG/DL (8.3-10.6); CREATININE FOR GFR 1.26 MG/DL (0.70-1.30); GLOMERULAR FILTRATION RATE 59.1 (>42); POTASSIUM SERUM 3.9 MMOL/L (3.5-5.1)
== END ==
LOC: M WUC 14:40
PROVIDERS: ATTEND Physician Assistant
DX: I10 Essential (primary) hypertension (principal)

== ENCOUNTER → 2023-07-22 | Outpatient (CLI) | payer OTHER ==
[2023-07-22 17:26] LABS: ALBUMIN 3.6 G/DL (3.2-5.2); ALKALINE PHOSPHATASE 75 U/L (46-116); ALT/SGPT 15 U/L (7.0-40); AST/SGOT 19 U/L (<34); BILIRUBIN,TOTAL 0.8 MG/DL (0.3-1.2); BLOOD UREA NITROGEN 25 MG/DL (9-23); CALCIUM LEVEL 9.1 MG/DL (8.3-10.6); CARBON DIOXIDE LEVEL 32 MMOL/L (20-31); CHLORIDE LEVEL 103 MMOL/L (98-107); CHOLESTEROL LEVEL 149 MG/DL (<200); CHOLESTEROL RISK RATIO 2.41 (<5); GLOMERULAR FILTRATION RATE > 60.0 (>42); GLUCOSE, FASTING 105 MG/DL (74-106); HDL CHOLESTEROL 61.7 MG/DL (>40); LDL CHOLESTEROL 71.5 MG/DL (<100); NON-HDL-C 87.3 MG/DL; POTASSIUM SERUM 4.2 MMOL/L (3.5-5.1); SODIUM LEVEL 139 MMOL/L (136-145); TOTAL PROTEIN 6.3 G/DL (5.7-8.2); TRIGLYCERIDES LEVEL 79 MG/DL (<150)
== END ==
LOC: M WUC 12:26
PROVIDERS: ATTEND Physician Assistant
DX: I25.10 Atherosclerotic heart disease of native coronary artery without angina pectoris (principal); E78.00 Pure hypercholesterolemia, unspecified

== ENCOUNTER → 2023-07-22 | Outpatient (CLI) | payer OTHER ==
[2023-07-22 17:17] LABS: HEMATOCRIT 41.8 % (42.0-52.0); HEMOGLOBIN 13.4 g/dl (13.5-17.5); MEAN CORPUSCULAR HEMOGLOBIN 29.3 pg (27.0-33.0); MEAN CORPUSCULAR HGB CONC 32.1 g/dl (32.0-36.5); MEAN CORPUSCULAR VOLUME 91.3 fl (80.0-96.0); PLATELET COUNT, AUTOMATED 174 10^3/uL (150-450); RED BLOOD COUNT 4.58 10^6/uL (4.30-6.10); WHITE BLOOD COUNT 5.5 10^3/uL (4.0-10.0)
[2023-07-22 17:29] LABS: ALBUMIN 3.6 G/DL (3.2-5.2); ALKALINE PHOSPHATASE 75 U/L (46-116); ALT/SGPT 16 U/L (7.0-40); AST/SGOT 21 U/L (<34); BILIRUBIN,TOTAL 0.8 MG/DL (0.3-1.2); BLOOD UREA NITROGEN 25 MG/DL (9-23); CARBON DIOXIDE LEVEL 32 MMOL/L (20-31); CHLORIDE LEVEL 104 MMOL/L (98-107); CREATININE FOR GFR 1.09 MG/DL (0.70-1.30); GLOMERULAR FILTRATION RATE > 60.0 (>42); GLUCOSE, FASTING 104 MG/DL (74-106); MAGNESIUM LEVEL 1.8 MG/DL (1.8-2.4); POTASSIUM SERUM 4.3 MMOL/L (3.5-5.1); SODIUM LEVEL 138 MMOL/L (136-145); TOTAL PROTEIN 6.2 G/DL (5.7-8.2)
== END ==
LOC: M WUC 12:22
PROVIDERS: ATTEND Physician Assistant
DX: J84.9 Interstitial pulmonary disease, unspecified (principal); E83.42 Hypomagnesemia; J43.9 Emphysema, unspecified; Z95.1 Presence of aortocoronary bypass graft; I70.0 Atherosclerosis of aorta; I25.10 Atherosclerotic heart disease of native coronary artery without angina pectoris; E78.00 Pure hypercholesterolemia, unspecified

== ENCOUNTER → 2023-08-10 | Outpatient (REF) | payer OTHER ==
[2023-08-10 14:34] LABS: BLOOD UREA NITROGEN 31 MG/DL (9-23); CARBON DIOXIDE LEVEL 30 MMOL/L (20-31); CHLORIDE LEVEL 102 MMOL/L (98-107); CREATININE FOR GFR 1.11 MG/DL (0.70-1.30); GLOMERULAR FILTRATION RATE > 60.0 (>42); GLUCOSE, FASTING 103 MG/DL (74-106); POTASSIUM SERUM 4.5 MMOL/L (3.5-5.1); SODIUM LEVEL 138 MMOL/L (136-145)
== END ==
LOC: M LABWUC 12:37 → M LAB REF 12:37
PROVIDERS: ATTEND Physician Assistant
DX: J18.9 Pneumonia, unspecified organism (principal)

== ENCOUNTER → 2023-09-06 | Outpatient (CLI) | payer OTHER, MEDICARE | LOC: M PLARAD 11:31 | PROVIDERS: ATTEND Physician Assistant | DX: R91.8 Other nonspecific abnormal finding of lung field (principal) | CPT/HCPCS: 78815; A9552 ==

== ENCOUNTER → 2023-10-29 | Outpatient (CLI) | payer OTHER, MEDICARE ==
[~2023-10-29] MED LIST changes: +DOXY-440 PO; -DOXY-444 PO
== END ==
LOC: M PLAIMG 11:50
PROVIDERS: ATTEND Physician Assistant
DX: M25.511 Pain in right shoulder (principal); M75.31 Calcific tendinitis of right shoulder; M19.011 Primary osteoarthritis, right shoulder

== ENCOUNTER → 2025-01-09 | Outpatient (CLI) | payer OTHER ==
[~2025-01-09] MED LIST changes: -ADV250INH INH; +ADVA1AER9 INH; +ALBU8.5H; +ANOR1AER; +ECOT81TA5 PO; -FLOM0.4C39 PO; +TAMS-18 PO
== END ==
LOC: M SOG 07:24
PROVIDERS: ATTEND Orthopaedic Surgery
DX: M25.512 Pain in left shoulder (principal); M19.012 Primary osteoarthritis, left shoulder

== ENCOUNTER → 2025-04-11 | Outpatient (CLI) | payer OTHER | LOC: M SOG 07:27 | PROVIDERS: ATTEND Orthopaedic Surgery | DX: Z53.9 Procedure and treatment not carried out, unspecified reason (principal) ==

== ENCOUNTER → 2025-06-05 | Outpatient (REF) | payer OTHER ==
[2025-06-05 13:22] LABS: BASO # 0.0 10^3/uL (0.0-0.2); BASO % 0.6 % (0.0-1.0); EOS # 0.2 10^3/uL (0.0-0.5); EOS % 2.7 % (0.0-3.0); LYMPH # 0.8 10^3/uL (1.5-5.0); LYMPH % 11.9 % (24.0-44.0); MONO # 0.6 10^3/uL (0.0-0.8); MONO % 9.3 % (2.0-8.0); NEUTROPHILS # 5.1 10^3/uL (1.5-8.5); NEUTROPHILS % 75.4 % (36.0-66.0); PLATELET COUNT, AUTOMATED 152 10^3/uL (150-450)
[2025-06-05 14:11] LABS: ALT/SGPT < 9 U/L (7.0-40); AST/SGOT 15 U/L (<34); C REACTIVE PROTEIN QUANTITATIV 1.70 MG/DL (<1.0); CALCIUM LEVEL 7.9 MG/DL (8.3-10.6); CARBON DIOXIDE LEVEL 32 MMOL/L (20-31); CHLORIDE LEVEL 98 MMOL/L (98-107); CREATININE FOR GFR 0.80 MG/DL (0.70-1.30); GLOMERULAR FILTRATION RATE 89.5 (>35); POTASSIUM SERUM 4.2 MMOL/L (3.5-5.1); SODIUM LEVEL 137 MMOL/L (136-145)
== END ==
LOC: M LAB REF 12:50
PROVIDERS: ATTEND Internal Medicine Infectious Disease
DX: A49.8 Other bacterial infections of unspecified site (principal)

== ENCOUNTER → 2025-06-11 | Outpatient (REF) | payer OTHER ==
[~2025-06-11] MED LIST changes: +MIDO5TA; +PIPE3.3729 IV
[2025-06-11 14:36] LABS: BASO # 0.0 10^3/uL (0.0-0.2); BASO % 0.5 % (0.0-1.0); EOS # 0.1 10^3/uL (0.0-0.5); EOS % 1.9 % (0.0-3.0); LYMPH # 1.0 10^3/uL (1.5-5.0); LYMPH % 16.2 % (24.0-44.0); MONO # 0.6 10^3/uL (0.0-0.8); MONO % 9.2 % (2.0-8.0); NEUTROPHILS # 4.6 10^3/uL (1.5-8.5); NEUTROPHILS % 72.0 % (36.0-66.0); PLATELET COUNT, AUTOMATED 188 10^3/uL (150-450)
[2025-06-11 15:03] LABS: ALT/SGPT < 9 U/L (7.0-40); AST/SGOT 17 U/L (<34); C REACTIVE PROTEIN QUANTITATIV 2.34 MG/DL (<1.0); CALCIUM LEVEL 8.4 MG/DL (8.3-10.6); CARBON DIOXIDE LEVEL 33 MMOL/L (20-31); CHLORIDE LEVEL 96 MMOL/L (98-107); CREATININE FOR GFR 0.82 MG/DL (0.70-1.30); GLOMERULAR FILTRATION RATE 88.8 (>35); POTASSIUM SERUM 4.4 MMOL/L (3.5-5.1); SODIUM LEVEL 134 MMOL/L (136-145)
== END ==
LOC: M LAB REF 12:59
PROVIDERS: ATTEND Internal Medicine Infectious Disease
DX: A49.8 Other bacterial infections of unspecified site (principal)

== ENCOUNTER 2025-06-14 06:10 | Day surgery (SDC) | payer MEDICARE, OTHER ==
[~2025-06-14] VITALS: Ht 172.7 cm; Wt 57.7 kg
[~2025-06-14 06:10] MED LIST changes: -PIPE3.3729 IV
[2025-06-14] MEDS ORDERED: LIDOCAINE 2% 100 MG/5 ML SDV (FOR ANES.) As Ordered ONE (06:46)
[2025-06-14] MEDS: LR 1,000 ML IV SCH (07:05)
[2025-06-14] MEDS: CETACAINE SPRAY 5 GM As Ordered ONE (07:43)
[2025-06-14 08:20] VITALS: BP 113/70; TEMP 98.1; O2SAT 98
[2025-06-14] MEDS ORDERED: PIPE3.3729 IV (10:39)
== END 2025-06-14 08:22 | disposition home or self-care (01) ==
LOC: M SDC 06:10
PROVIDERS: ATTEND Internal Medicine Cardiovascular Disease
DX: I27.0 Primary pulmonary hypertension (principal); B95.2 Enterococcus as the cause of diseases classified elsewhere; Z95.1 Presence of aortocoronary bypass graft; Z87.891 Personal history of nicotine dependence; J44.9 Chronic obstructive pulmonary disease, unspecified; Z79.51 Long term (current) use of inhaled steroids; Z79.82 Long term (current) use of aspirin; E78.5 Hyperlipidemia, unspecified; Z79.899 Other long term (current) drug therapy
CPT/HCPCS: 93312; 93320; 93325; J3010